=== PATIENT | male | born 1960 | race Caucasian/White ===

== ENCOUNTER 2024-09-11 22:39 | Inpatient (IN) | payer SELFPAY ==
[~2024-09-11] VITALS: Ht 180.3 cm; Wt 95.3 kg
[2024-09-11] MEDS: 0.9%NACL 1000ML 1,000 ML IV ONE (23:15)
[2024-09-11] MEDS: hydroMORPHone 0.5 MG SYG (0.5MG/0.5ML) IVP ONE (23:16)
[2024-09-11 23:18] LABS: BASOPHILS # (AUTO) 0.01 K/uL (0.00-0.20); BASOPHILS % (AUTO) 0.1 % (0.0-5.0); EOSINOPHILS # (AUTO) 0.02 K/uL (0.00-0.70); EOSINOPHILS % (AUTO) 0.3 % (0.0-8.0); IMMATURE GRANULOCYTE ABSOLUTE 0.06 K/uL (0-1); LYMPHOCYTES # (AUTO) 0.8 K/uL (1.0-4.8); LYMPHOCYTES % (AUTO) 11.1 % (21.0-51.0); MEAN CORPUSCULAR HEMOGLOBIN 37.4 pg (27.0-33.0); MEAN CORPUSCULAR HGB CONC 34.4 g/dL (32.0-36.0); MEAN CORPUSCULAR VOLUME 108.8 fL (79-99); MONOCYTES # (AUTO) 0.5 K/uL (0.1-1.0); MONOCYTES % (AUTO) 6.5 % (3.0-13.0); NEUTROPHILS # (AUTO) 5.6 K/uL (1.8-7.7); NEUTROPHILS % (AUTO) 81.1 % (40.0-77.0); PLATELET COUNT (AUTO) 198 K/uL (130-400); RED BLOOD CELL COUNT(AUTO) 1.71 MIL/uL (4.50-6.20); RED CELL DISTRIBUTION WIDTH 14.9 % (11.0-15.5); WHITE BLOOD COUNT (AUTO) 6.9 K/uL (4.8-10.8)
[2024-09-11 23:20] LABS: HEMATOCRIT 18.6 % (42-54)
[2024-09-11 23:21] LABS: CREATININE 0.6 mg/dL (0.5-1.3); POTASSIUM 4.7 mmol/L (3.5-5.1)
[2024-09-11] MEDS: IpraTROPium/alBUTERol SULFATE 3 ML SOLUTION IH ONE (23:30)
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
[2024-09-12] VITALS (40 sets, daily range): BP systolic 78–143; BP diastolic 39–74; PULSE 76–96; RESP 10–37; TEMP 97–98.9; O2SAT 92–98
--- NOTE | 2024-09-12 00:32 | HMCIMG ---
CT CHEST/ABD/PELV W/O CONTRAST HISTORY: Status post fall COMPARISON: None TECHNIQUE: Multiple sequential axial images of the chest were obtained from the thoracic inlet through upper abdomen. Patient was not given contrast through intravenous route. FINDINGS: COPD changes are seen with interstitial fibrosis. Coronary arterial calcifications are seen. There is no evidence of pulmonary nodule or parenchymal disease. No pleural effusion or pericardial effusion is seen. There is no evidence of pneumothorax. There are normal size mediastinal and hilar lymph nodes. The heart is not enlarged. Degenerative changes of the thoracolumbar spine are present. Compression fractures are seen involving T3, T4, T7 with 20% loss of height. Compression fractures are seen involving L1 and L2 with 40% and 80% loss of height respectively. IMPRESSION: 1. No evidence of pulmonary nodule or effusion is seen. COPD with interstitial fibrosis. A small hiatal hernia is seen. CT CHEST/ABD/PELV W/O CONTRAST HISTORY: Status post fall COMPARISON: None TECHNIQUE: Multiple sequential axial images of the abdomen and pelvis were obtained from the dome of the diaphragm through symphysis pubis. Patient was not given contrast through intravenous route. Oral contrast was not given. FINDINGS: The liver, spleen, adrenal glands and pancreas are unremarkable. There is no evidence of hydronephrosis bilaterally. There is 7.3 mm right renal pelvic stone. There is atherosclerosis. Mild small bowel dilatation is seen. Fecal material is seen in the colon. There are normal size retroperitoneal and mesenteric lymph nodes. No ascites is seen. Atherosclerotic changes are present. Pelvic sidewalls are symmetric bilaterally. Bladder is well distended without wall thickening. IMPRESSION: 1. Multiple compression fractures. 7.3 mm right renal pelvic stones without hydronephrosis. No ascites. CT was performed with one or more following dose reduction techniques: automated exposure control, adjustment of the mA and kv according to patient's size, or use of a iterative reconstruction technique.
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
[2024-09-12] MEDS: PANTOPrazole 40 MG/VIAL IVP ONE (01:36)
[2024-09-12 02:16] LABS: APPEARANCE,URINE CLEAR (CLEAR); BILIRUBIN,URINE NEGATIVE (NEGATIVE); COLOR,URINE LIGHT-YELLOW (YELLOW); GLUCOSE, URINE (UA) NEGATIVE (NEGATIVE); KETONES,URINE 5 mg/dL (NEGATIVE); LEUKOCYTE ESTERASE ,URINE NEGATIVE Leu/uL (NEGATIVE); NITRATE,URINE NEGATIVE (NEGATIVE); OCCULT BLOOD,URINE NEGATIVE (NEGATIVE); PH,URINE 5.5 (5.0-8.0); PROTEIN,URINE NEGATIVE (NEGATIVE); UROBILINOGEN,URINE 0.2 mg/dL (0.2-1.0)
[2024-09-12 02:20] LABS: ADD UA MICROSCOPIC YES
[2024-09-12 02:26] LABS: MUCUS,URINE RARE LPF (None Seen); WBC,URINE 0-1 /HPF (0-1)
[2024-09-12] MEDS: 0.9%NACL 1000ML 1,000 ML IV SCH (02:42)
--- NOTE | 2024-09-12 04:04 | NUR ---
NONOG ESCROW OFFICER MADE AWARE OF CRITICAL CARE CONSULT
--- NOTE | 2024-09-12 04:10 | NUR ---
1 UNIT OF PRBC'S COMPLETED AT THIS TIME, PATIENT IS IN NO DISTRESS
[2024-09-12] MEDS: PANTOPrazole 40MG INJ 80 MG in 0.9%NACL 100ML 100 ML IVP SCH (04:36)
[2024-09-12] MEDS: OCTREOTIDE 1,250 MCG /NS 250ML (DRIP) IV SCH (04:37)
[2024-09-12] MEDS: octREOtide aceTATe 100 MCG/ML AMP IV ONE (05:08)
[2024-09-12 06:16] LABS: BASOPHILS # (AUTO) 0.02 K/uL (0.00-0.20); BASOPHILS % (AUTO) 0.2 % (0.0-5.0); EOSINOPHILS # (AUTO) 0.03 K/uL (0.00-0.70); EOSINOPHILS % (AUTO) 0.4 % (0.0-8.0); HEMATOCRIT 22.5 % (42-54); IMMATURE GRANULOCYTE ABSOLUTE 0.03 K/uL (0-1); LYMPHOCYTES # (AUTO) 1.3 K/uL (1.0-4.8); LYMPHOCYTES % (AUTO) 16.6 % (21.0-51.0); MEAN CORPUSCULAR HEMOGLOBIN 35.8 pg (27.0-33.0); MEAN CORPUSCULAR HGB CONC 33.8 g/dL (32.0-36.0); MEAN CORPUSCULAR VOLUME 106.1 fL (79-99); MONOCYTES # (AUTO) 0.8 K/uL (0.1-1.0); MONOCYTES % (AUTO) 9.6 % (3.0-13.0); NEUTROPHILS # (AUTO) 5.8 K/uL (1.8-7.7); NEUTROPHILS % (AUTO) 72.8 % (40.0-77.0); PLATELET COUNT (AUTO) 150 K/uL (130-400); RED BLOOD CELL COUNT(AUTO) 2.12 MIL/uL (4.50-6.20); RED CELL DISTRIBUTION WIDTH 16.3 % (11.0-15.5)
[2024-09-12 06:17] LABS: CREATININE 0.4 mg/dL (0.5-1.3); MAGNESIUM 1.5 mg/dL (1.80-2.40); PHOSPHORUS 3.7 mg/dL (2.5-4.9); POTASSIUM 4.9 mmol/L (3.5-5.1)
--- NOTE | 2024-09-12 06:26 | EKG ---
[facility] Test Date: 2024-09-12 Test Time: 00:34:09 Pat Name: NOLBERTO MAGANA Department: [facility] Room: 207 Gender: M Medical Parasitologist: [id number] : 1960 Requested By: BHAVYA BOYD Order Number: [id number] Reading MD: Colton Olson Measurements Intervals Bennet Rate: 91 P: 66 WI: 143 QRS: -62 QRSD: 113 T: 163 QT: 426 QTc: 524 Interpretive Statements Sinus rhythm LAD, consider left anterior fascicular block Anterior infarct, age indeterminate Abnormal T, probable ischemia, lateral leads Prolonged QT interval No previous ECG available for comparison Electronically Signed On 09-12-2024 14:48:44 CONCESSION WORKER by Colton Olson Please click the below link to view image of tracing.
[2024-09-12 07:43] LABS: INR 1.07 (0.85-1.15); PROTHROMBIN TIME 11.3 SEC (9.6-11.6)
[2024-09-12 07:44] LABS: PARTIAL THROMBOPLASTIN TIME 26.5 SEC (26.3-35.5)
[2024-09-12] MEDS: MAGNESIUM 2GM PREMIX 50ML 50 ML IV PRN (07:51)
[2024-09-12] MEDS ORDERED: chlordiazePOXIDE HCL 25 MG CAP PO PRN (09:00)
[2024-09-12] MEDS ORDERED: PHARMACY COMMUNICATION MISC PRN (09:00)
[2024-09-12] MEDS ORDERED: LORazepam 2 MG/ML 1 ML VIAL IVP PRN (09:00)
[2024-09-12] MEDS ORDERED: hydroMORPHone 0.5 MG SYG (0.5MG/0.5ML) IVP PRN (09:00)
[2024-09-12] MEDS ORDERED: HYDROcodone/acetaMINOPHEN 10/325 MG TAB PO PRN (09:00)
[2024-09-12] MEDS ORDERED: HYDROcodone/APAP 5/325 1 TAB TABLET PO PRN (09:00)
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
[2024-09-12 09:10] LABS: ALBUMIN 1.9 g/dL (3.5-5.0); BILIRUBIN,DIRECT 0.2 mg/dL (0.0-0.3); BILIRUBIN,TOTAL 0.4 mg/dL (0.2-1.0); TOTAL PROTEIN, SERUM 4.2 g/dL (6.0-8.3)
--- NOTE | 2024-09-12 09:24 | HMCIMG ---
PORTABLE CHEST RADIOGRAPH INDICATION: sob COMPARISON: None FINDINGS: peripatologist leads overlie the field of view. Heart size is normal. The pulmonary vascularity and paty appear normal. No abnormal pulmonary parenchymal opacity or consolidation identified. No significant pleural effusion noted. No pneumothorax detected. IMPRESSION: No radiographic evidence for any acute cardiopulmonary process.
[2024-09-12] MEDS ORDERED: COMPOUND IV REFRIGERATED 1 EACH IVSOLN MISC PRN (09:30)
[2024-09-12 10:06] LABS: HEMATOCRIT 21.2 % (42-54)
[2024-09-12] MEDS: [UNRECOGNIZED DRUG - OTHER] IVPB ONE (10:44)
[2024-09-12] MEDS: CEFTRIAXONE 2GM VIAL IVPB SCH (10:44)
[2024-09-12] MEDS: AZITHROMYCIN 500 MG IVPB ONE (10:44)
[2024-09-12] MEDS: morPHINE 2 MG SYG IVP PRN (11:09)
--- NOTE | 2024-09-12 14:25 | NUR ---
Pt going for scheduled EGD with Dr. Gonzalez, accompanied by GI RN X2. Patient stable at time of transfer, all safety measures in place.
[2024-09-12] MEDS ORDERED: no home meds (14:44)
[2024-09-12] MEDS ORDERED: GADOTERATE MEGLUMINE 10 MMOL/20 ML VIAL IV ONE (16:27)
[2024-09-12] MEDS: LACTULOSE 20 GM/30 ML UDCUP PO SCH (17:11)
[2024-09-12] MEDS: THIAMINE HCL 100 MG, FOLic ACID 5 MG/ML VIAL 1 MG, M.V.I. IV [ADULT] 10 ML in 0.9%NACL ... IV SCH (17:12)
--- NOTE | 2024-09-12 18:12 | CONS ---
Cardiac Consult Note CONSULT NOTE DATE OF SERVICE: Sep 11, 2024 at 22:39 REFERRING PROVIDER: KAREN MARIE MD REASON FOR CONSULT: Preoperative assessment/preprocedural cardiovascular assessment prior to GI workup HPI: 64-year-old gentleman who has been taking high-dose NSAIDs after suffering a fall at home. Patient has been diagnosed with compression fractures and he was going to be scheduled for GI workup today when his hemoglobin was noted to be at 6.4 grams/deciliter. However patient had significant EKG changes concerning for ischemia and Cardiology was consulted for preprocedural assessment. He currently denies any prior history of myocardial infarction stroke TIA diabetes or dyslipidemia but admits to not going to the doctor very often. He does see Dr. Vanessa as needed for his aches and pains but really does not take any medications regularly. Patient's EKG is indeed significant for possible ischemic changes and when I came to evaluate patient he was actually undergoing an echocardiogram that had been ordered by primary team. While I was there patient was noted to have significant issues related to poor imaging but s ubcostal views did reveal him to have a gradient across his aortic valve and upon imaging he does have some degree of aortic stenosis. Peak gradient across aortic valve and left ventricular outflow tract was at more than 80 mmHg in the setting of a significant anemia. Patient currently is receiving a 2nd unit of blood. Patient denies any prior syncope. He states for the last year does note easier fatigability. Denies any chest pressure tightness syncope or presyncope or any admissions in the hospital for congestive heart failure. Patient does smoke 5 cigarettes daily and drinks 2 12 oz beers every other day ROS: No fever, headache, chest pain, abdominal pain, nausea, vomiting, or diarrhea. PMHX: Nicotine dependence Possible COPD PSHX: Noncontributory FH: Positive for CAD SOCIAL: As above PHYSICAL EXAMINATION: GENERAL: No acute distress. HEENT: Normocephalic, atraumatic. CARDIAC: Positive S1 and S2. Very distant heart sounds LUNGS: Rhonchi noted anteriorly ABDOMEN: Bowel sounds present, soft, nontender. EXTREMITIES: No edema bilaterally. Poorly palpable pedal pulses NEUROLOGIC: Cranial nerves 2-12 grossly intact. PSYCHIATRIC: Calm. ASSESSMENT: Cardiovascular assessment prior to noncardiac procedure Aortic stenosis via echocardiography GI bleed presenting with severe anemia present on admission Compression fractures after fall at home PLAN: At this time we will await results of 2D echocardiography but I feel patient should be considered intermediate risk to proceed with low risk procedure. Patient should remain on telemetry and would prefer that any invasive procedures get done once hemoglobin is above 9 grams/deciliter. Would try and avoid significant hypotension considering patient's valvular abnormality. Would keep patient in ICU setting today until transfusions have been completed. Ejection fraction appears to be normal on his echocardiogram so do not think any IV diuresis is needed in between units of blood. We will continue to follow through the weekend. Vital Signs 09/11/24 09/11/24 09/11/24 09/11/24 22:42 22:43 23:00 23:53 Temp 97.3 97.3 97.2 Pulse 103 103 101 91 Resp 20 20 24 20 B/P (MAP) 94/60 94/60 85/54 91/48 Pulse Ox 96 96 96 99 O2 Delivery Room Air* Room Air Room Air* Nasal Cannula* O2 Flow Rate 0 0 0 2 FiO2 09/12/24 09/12/24 09/12/24 09/12/24 00:15 01:15 02:07 02:47 Temp 97.5 98.6 Pulse 90 86 86 85 Resp 16 16 14 20 B/P (MAP) 97/66 87/48 109/55 96/50 Pulse Ox 100 100 100 99 O2 Delivery Nasal Cannula* Nasal Cannula* Nasal Cannula* Nasal Cannula* O2 Flow Rate 2 2 2 2 FiO2 28 28 09/12/24 09/12/24 09/12/24 09/12/24 03:50 05:26 06:15 07:43 Temp 98.8 97.5 Pulse 86 83 84 80 Resp 16 16 16 18 B/P (MAP) 92/52 101/55 99/56 99/62 Pulse Ox 98 99 98 100 O2 Delivery Nasal Cannula* Nasal Cannula* Nasal Cannula* Room Air* O2 Flow Rate 2 2 2 0 FiO2 09/12/24 09/12/24 09/12/24 09/12/24 09:00 09:15 09:30 09:45 Temp 97.9 Pulse 86 78 86 87 Resp 20 12 21 20 B/P (MAP) 97/63 107/46 82/39 120/61 Pulse Ox 95 88 96 95 O2 Delivery Room Air Room Air Room Air Room Air 3/7/25 09/12/24 09/12/24 09/12/24 10:00 10:15 10:30 10:45 Pulse 87 81 77 84 Resp 24 12 11 26 B/P (MAP) 103/74 86/52 82/47 120/51 Pulse Ox 96 94 98 98 O2 Delivery Room Air Room Air Room Air Room Air 09/12/24 09/12/24 09/12/24 09/12/24 11:00 11:15 11:30 12:30 Temp 97.0 Pulse 82 76 84 82 Resp 16 10 21 14 B/P (MAP) 101/48 130/58 143/54 92/60 Pulse Ox 99 98 99 O2 Delivery Room Air Room Air Room Air 09/12/24 09/12/24 09/12/24 12:45 13:00 13:15 Pulse 83 78 80 Resp 17 12 13 B/P (MAP) 88/53 78/45 83/52 Pulse Ox 89 87 91 O2 Delivery Room Air Room Air Room Air Laboratory Tests Test 09/11/24 23:01 09/12/24 01:12 09/12/24 01:50 09/12/24 02:05 White Blood Count 6.9 K/uL (4.8-10.8) Red Blood Count 1.71 MIL/uL (4.50-6.20) Hemoglobin 6.4 g/dL (14.0-18.0) Hematocrit 18.6 % (42-54) Mean Corpuscular Volume 108.8 fL (79-99) Mean Corpuscular Hemoglobin 37.4 pg (27.0-33.0) Mean Corpuscular Hemoglobin Concent 34.4 g/dL (32.0-36.0) Red Cell Distribution Width 14.9 % (11.0-15.5) Platelet Count 198 K/uL (130-400) Mean Platelet Volume 10.0 fL (7.5-10.5) Immature Granulocyte % (Auto) 0.9 % (0-1) Neutrophils (%) (Auto) 81.1 % (40.0-77.0) Lymphocytes (%) (Auto) 11.1 % (21.0-51.0) Monocytes (%) (Auto) 6.5 % (3.0-13.0) Eosinophils (%) (Auto) 0.3 % (0.0-8.0) Basophils (%) (Auto) 0.1 % (0.0-5.0) Neutrophils # (Auto) 5.6 K/uL (1.8-7.7) Lymphocytes # (Auto) 0.8 K/uL (1.0-4.8) Monocytes # (Auto) 0.5 K/uL (0.1-1.0) Eosinophils # (Auto) 0.02 K/uL (0.00-0.70) Basophils # (Auto) 0.01 K/uL (0.00-0.20) Absolute Immature Granulocyte (auto 0.06 K/uL (0-1) Nucleated Red Blood Cells 0.0 % (0.0-0.19) Red Blood Cell Morphology See comments Sodium Level 128 mmol/L (136-145) Potassium Level 4.7 mmol/L (3.5-5.1) Chloride Level 94 mmol/L (101-111) Carbon Dioxide Level 29 mmol/L (21-32) Blood Urea Nitrogen 31 mg/dL (7-18) Creatinine 0.6 mg/dL (0.5-1.3) Glomerular Filtration Rate Calc 108 mL/min (>90) Random Glucose 181 mg/dL (70-105) Total Calcium 7.8 mg/dL (8.5-10.1) Reticulocyte Count (auto) 4.28916 % (0.42-2.23) Immature Reticulocyte Fraction 19.80 % (0.18-0.48) Iron Level 77 mcg/dL (65-175) Total Iron Binding Capacity 124 mcg/dL (250-450) Percent Iron Saturation 62.0 % (30-44) Lactate Dehydrogenase 125 U/L (81-234) Vitamin B12 Level 248 pg/mL (193-986) Folic Acid (LAB) 7.80 ng/mL (2-20) Stool Occult Blood POSITIVE (NEGATIVE) Urine Color LIGHT-YELLOW (YELLOW) Urine Appearance CLEAR (CLEAR) Urine pH 5.5 (5.0-8.0) Urine Specific [place] 1.021 (1.001-1.031) Urine Protein NEGATIVE mg/dL (NEGATIVE) Urine Glucose (UA) NEGATIVE mg/dL (NEGATIVE) Urine Ketones 5 mg/dL (NEGATIVE) Urine Occult Blood NEGATIVE (NEGATIVE) Urine Nitrate NEGATIVE (NEGATIVE) Urine Bilirubin NEGATIVE mg/dL (NEGATIVE) Urine Urobilinogen 0.2 mg/dL (0.2-1.0) Urine Leukocyte Esterase NEGATIVE Yesi/uL Urine RBC 2-5 /HPF (0-1) Urine WBC 0-1 /HPF (0-1) Urine Bacteria None /HPF (None Seen) Urine Random Sodium 19 mmol/l (40-220) Test 09/12/24 05:45 09/12/24 06:10 09/12/24 07:17 09/12/24 09:54 Sodium Level 128 mmol/L (136-145) Potassium Level 4.9 mmol/L (3.5-5.1) Chloride Level 100 mmol/L (101-111) Carbon Dioxide Level 25 mmol/L (21-32) Blood Urea Nitrogen 29 mg/dL (7-18) Creatinine 0.4 mg/dL (0.5-1.3) Glomerular Filtration Rate Calc 122 mL/min (>90) Random Glucose 111 mg/dL (70-105) Total Calcium 7.6 mg/dL (8.5-10.1) Phosphorus Level 3.7 mg/dL (2.5-4.9) Magnesium Level 1.50 mg/dL (1.80-2.40) White Blood Count 8.0 K/uL (4.8-10.8) Red Blood Count 2.12 MIL/uL (4.50-6.20) Hemoglobin 7.6 g/dL (14.0-18.0) 7.5 g/dL (14.0-18.0) Hematocrit 22.5 % (42-54) 21.2 % (42-54) Mean Corpuscular Volume 106.1 fL (79-99) Mean Corpuscular Hemoglobin 35.8 pg (27.0-33.0) Mean Corpuscular Hemoglobin Concent 33.8 g/dL (32.0-36.0) Red Cell Distribution Width 16.3 % (11.0-15.5) Platelet Count 150 K/uL (130-400) Mean Platelet Volume 9.6 fL (7.5-10.5) Immature Granulocyte % (Auto) 0.4 % (0-1) Neutrophils (%) (Auto) 72.8 % (40.0-77.0) Lymphocytes (%) (Auto) 16.6 % (21.0-51.0) Monocytes (%) (Auto) 9.6 % (3.0-13.0) Eosinophils (%) (Auto) 0.4 % (0.0-8.0) Basophils (%) (Auto) 0.2 % (0.0-5.0) Neutrophils # (Auto) 5.8 K/uL (1.8-7.7) Lymphocytes # (Auto) 1.3 K/uL (1.0-4.8) Monocytes # (Auto) 0.8 K/uL (0.1-1.0) Eosinophils # (Auto) 0.03 K/uL (0.00-0.70) Basophils # (Auto) 0.02 K/uL (0.00-0.20) Absolute Immature Granulocyte (auto 0.03 K/uL (0-1) Nucleated Red Blood Cells 0.0 % (0.0-0.19) Prothrombin Time 11.3 SEC (9.6-11.6) Prothromb Time International Ratio 1.07 (0.85-1.15) Activated Partial Thromboplast Time 26.5 SEC (26.3-35.5) Total Bilirubin 0.4 mg/dL (0.2-1.0) Direct Bilirubin 0.2 mg/dL (0.0-0.3) Aspartate Amino Transf (AST/SGOT) 43 U/L (10-37) Alanine Aminotransferase (ALT/SGPT) 20 U/L (12-78) Alkaline Phosphatase 60 U/L (50-136) Total Protein 4.2 g/dL (6.0-8.3) Albumin 1.9 g/dL (3.5-5.0) Serum Alcohol 4 mg/dL (0-10) Test 09/12/24 16:45 Hemoglobin 6.8 g/dL (14.0-18.0) Hematocrit 20.0 % (42-54) Current Medications Medications Dose Ordered Sig/Samina Route PRN Reason Start Time Stop Time Status Last Admin Hydromorphone HCl 0.5 mg ONCE ONCE IVP 09/11/24 23:00 09/11/24 23:05 DC 09/11/24 23:16 Sodium Chloride 1,000 ml @ 0 mls/hr ONCE ONCE IV 09/11/24 23:00 09/11/24 23:05 DC 09/11/24 23:15 Albuterol 1 UDVIAL ONCE ONCE IH 09/11/24 23:30 09/11/24 23:31 DC Pantoprazole Sodium 80 mg ONCE ONCE IVP 09/11/24 23:30 09/11/24 23:31 DC 09/12/24 01:36 Sodium Chloride 1,000 ml @ 75 mls/hr [id number] IV 09/12/24 01:30 10/12/24 01:29 09/12/24 02:42 Octreotide Acetate 50 mcg ONCE ONCE IV 09/12/24 04:00 09/12/24 04:01 DC 09/12/24 05:08 Octreotide Acetate 1,000 mcg ONCE IV 09/12/24 04:00 09/12/24 03:58 DC Pantoprazole Sodium 80 mg/ Sodium Chloride 100 ml @ 10 mls/hr Q10H IVP 09/12/24 04:00 10/12/24 03:59 09/12/24 17:11 Octreotide Acetate 1250 mcg/ Sodium Chloride 250 ml @ 0 mls/hr PROTOCOL IV 09/12/24 04:00 10/12/24 03:59 09/12/24 04:37 Ceftriaxone Sodium 2 gm Q24H IVPB 09/12/24 09:00 09/22/24 08:59 09/12/24 10:44 Thiamine HCl 100 mg/Folic Acid 1 mg/Multivitamins/ Minerals 10 ml/ Sodium Chloride 1,011.2 ml @ 100 mls/ hr Q24H IV 09/12/24 09:00 09/14/24 19:07 09/12/24 17:12 Azithromycin 125 ml @ 125 mls/hr ONCE ONCE IVPB 09/12/24 10:30 09/12/24 11:29 DC 09/12/24 10:44 Lactulose 20 gm Q2H PO 09/12/24 15:00 09/12/24 18:00 DC 09/12/24 17:11 Polyethylene Glycol 17 gm DAILY PO 09/13/24 09:00 10/13/24 08:59 Gadoterate Meglumine 10 mmol STK-MED ONCE IV 09/12/24 16:27 09/12/24 16:28 DC Reported Medications [no home meds] No Conflict Check 09/12/24 KAREN MARIE MD Sep 12, 2024 18:12
--- NOTE | 2024-09-12 18:14 | HMCSR ---
APPROVED REPORT EXAM: Two-dimensional and M-mode echocardiogram with Doppler and color Doppler. INDICATION ICD: Assess LV Function 2D Dimensions RVDd2.9 cmLVEF(%)62.1 (>50%)LVED Vol(simp.)80.5 mL IVSd1.4 (0.7-1.1cm)FS(%)34 %LVES Vol(simp.)37.7 mL LVDd5.1 (3.8-5.6cm)Ao Root(2D)3.7 (2.0-3.7cm)LVEF(%, simp.)53 % PWd1.1 (0.7-1.1cm)LVOT diam2.2 (1.8-2.4cm)LA ESV INDEX (BP)26.26 mL/m2 LVDs3.4 (2.5-4.0cm)IVC diam1.7 cm Aortic Valve AoV Vmax4.7 m/Kimberli Peak GR88.0 mmHgLVOT Vmax1.1 m/s AoV VTI0.9 mAo Mean GR56.0 mmHgLVOT VTI0.24 m TALHA (VMAX)1.0 cm2AVA (VTI) 1.0 cm2 Mitral Valve MV E Vmax80.8 cm/sDECEL Nelu567 ms MV A Peqe909.0 cm/sP 1/2 T43 ms E/A ratio0.6MVA (PHT)5.1 cm2 TDI E/E' Vbouhj78.2E/E' Lhcmors99.5 Medial E' Peak V5.00 cm/sLateral E' Peak V6.00 cm/s Tricuspid Valve TR Vmax2.4 m/sRVSP22.3 mmHg TR Peak GR22.3 mmHg Left Ventricle Left ventricular cavity size is normal. There is normal LV segmental wall motion. Mild concentric lef t ventricular hypertrophy. LVEF is 50-55%. Indeterminate diastolic dysfunction. Right Ventricle The right ventricle is normal size. The right ventricular systolic function is normal. Atria The left atrium size is normal. The right atrium size is normal. Aortic Valve The aortic valve is calcified and displays decreased opening. No aortic regurgitation is present. The re is severe valvular aortic stenosis. Highest mean aortic valve gradient is 56mmHg at rest. Peak aor tic valve gradient is 86mmHg. TALHA planimetry 0.6cm2. Mitral Valve The mitral valve is normal in structure and function. There is no mitral valve regurgitation noted. T here is no mitral valve stenosis. Tricuspid Valve The tricuspid valve leaflets appear normal. There is mild tricuspid valve regurgitation noted. Pulmonic Valve The pulmonary valve is normal in structure and function. There is no pulmonic valvular regurgitation. Great Vessels The aortic root is normal in size. The IVC is normal in size and collapses >50% with inspiration. Pericardium Trace pericardial effusion. Conclusion LVEF is 50-55%. There is normal LV segmental wall motion. The aortic valve is calcified and displays decreased opening. There is severe valvular aortic stenosis. Highest mean aortic valve gradient is 56mmHg at rest. Peak aortic valve gradient is 86mmHg. TALHA planimetry 0.6cm2.
[2024-09-13] VITALS (27 sets, daily range): BP systolic 95–127; BP diastolic 51–83; PULSE 69–86; RESP 11–89; TEMP 98–98.2; O2SAT 97–98
--- NOTE | 2024-09-13 00:36 | CONS ---
GASTROINTESTINAL CONSULTATION REFERRING PHYSICIAN: Rene Rivero MD REASON FOR CONSULTATION: GI bleed with melena, acute blood loss anemia, nausea and change in bowel habit with constipation plus weight loss. HISTORY OF PRESENT ILLNESS: The patient is a 64-year-old male with history of benign prostatic hyperplasia and admitted with back pain and who has been noted to have melena, weight loss, nausea, constipation, with anemia on labs, for which GI evaluation and management are sought. According to the patient, he has been having black tarry stool over the last 24 hours. He also has experienced some nausea and has been having constipation for 10 days. He has lost 10 pounds unintentional over the last 6 months. He denies any abdominal pain, vomiting, hematochezia, and diarrhea. He denies history of PUD, but admits history of NSAID use and reports because of his back pain. He has been taking NSAIDs over the last 3 weeks. He reports constipation has been noted over the last 10 days too. He has lost 10 pounds unintentional over the last 6 months and reports decreased appetite. He has had no fevers or chills. The patient denies any history of liver disease, admits history of alcohol use. He has no family history of colon cancer, stomach cancer, liver disease, gallbladder, pancreatic disease or IBD. ALLERGIES: No known drug allergies. PAST MEDICAL AND SURGICAL HISTORY: See above, also history of benign prostatic hyperplasia and back pain, but no hypertension, coronary artery disease, myocardial infarction, cerebrovascular accident, seizure disorder, peptic ulcer, or asthma. He has undergone splenectomy at age 14 years. He also had a left ACL repair. MEDICATIONS: Morphine sulfate, thiamine, folic acid, multivitamins and minerals, lorazepam, chlordiazepoxide, ceftriaxone, hydromorphone, hydrocodone bitartrate with acetaminophen, magnesium sulfate, IV octreotide, IV Protonix, albuterol. SOCIAL HISTORY: The patient reports history of alcohol use and smoking tobacco, but no illicit drug use. FAMILY HISTORY: Significant for supranuclear palsy in his father who is now . Mother of COVID. There is no family history of diabetes, hypertension, coronary artery disease, myocardial infarction, cerebrovascular accident, colon cancer, stomach cancer, liver disease, pancreatic, gallbladder disease or IBD. There is no family history of bleeding disorders either. REVIEW OF SYSTEMS: CONSTITUTIONAL: The patient reports nausea, has improved since hospitalization. Still has constipation and weight loss as noted above. Melena has subsided. DERMATOLOGY: Has easy bruising. Denies any rash or excessive dry skin. ENT: No ear pain, tinnitus, hearing loss, nasal congestion, rhinorrhea, sore throat, or voice change. OPHTHALMOLOGY: No recent vision change, eye pain, periorbital swelling, redness or drainage. RESPIRATORY: No wheeze, rhinorrhea, epistaxis, chest congestion, cough, or shortness of air. CARDIOVASCULAR: No chest pain, palpitation, or leg swelling. GENITOURINARY: He has benign prostatic hyperplasia with urinary hesitancy at times. Denies dysuria, hematuria, urinary urgency, or frequency. GASTROINTESTINAL: The patient has had nausea and also he has been having constipation, melena, weight loss as noted above but no vomiting. He denies diarrhea also. The patient denies hematochezia as well. MUSCULOSKELETAL: He admits to back pain, but no joint swelling, no muscle ache. NEUROLOGIC: He has back pain as noted above. Denies vision changes, hearing loss, numbness or tingling in lower extremity. PSYCHIATRY: No history of depression, anxiety, suicidal plans or ideation. ENDOCRINOLOGY: No history of diabetes, thyroid disease, or hyperlipidemia. HEMATOLOGY/LYMPHATICS: He has easy bruising. Has recent melena, but denies any inherited bleeding disorders, swollen, tender or palpable lymph nodes. PHYSICAL EXAMINATION: GENERAL: The patient is a 64-year-old male, seen resting in bed, no acute respiratory distress. VITAL SIGNS: Blood pressure 83/52, heart rate 80, respirations 13, temperature 97 degrees Fahrenheit. Followup BP now 103/69, heart rate 88, respirations 16. HEENT: The patient's head is normocephalic, atraumatic. Pupils reactive, sclerae are nonicteric. Oral mucosa was moist. No obvious lesion or blood noted. Nasal mucosa showed no epistaxis, septal deviation, or perforation. NECK: No mass or jugular venous distention. No lymphadenopathy, no thyromegaly. LUNGS: Clear to auscultation bilaterally. HEART: S1, S2. No obvious murmurs, rubs, or gallops ausculated. ABDOMEN: Symmetric, soft with active bowel sounds. No hepatomegaly or masses. No tenderness noted. EXTREMITIES: No cyanosis, clubbing, or edema. RECTAL: Deferred. NEUROLOGICAL: The patient is awake, alert. Light touch, pin and temperature grossly intact bilaterally. LABORATORY DATA: WBC 8, hemoglobin 7.6, hematocrit 22.5, MCV of 106.1, platelet count of 150. Retic count 4.16 and immature retic fraction 19.8. PT 11.3, INR 1.07, APTT of 26.5. Serum chemistry revealed sodium of 128, potassium 4.9, chloride of 100, CO2 of 25, BUN of 29, creatinine of 0.4, GFR of 122, random glucose 111, total calcium of 7.6. Phosphorus of 3.7, magnesium of 1.5. Iron of 77, TIBC 124, percent saturation of 62. Total bilirubin of 0.4, direct bilirubin of 0.2, AST 43, ALT 20, alkaline phosphatase of 60. Lactate dehydrogenase of 125, total protein of 4.2, albumin of 1.9. Vitamin B12 level at 248. Folic acid of 10.8. Serum alcohol level was 4 on tox screen. UA showed light yellow; clear urine; pH of 5.5; specific gravity 1.021; protein and glucose were negative; ketones 5; occult blood, nitrite, bilirubin negative; urobilinogen 0.2, leukocyte esterase negative; rbc 2-5; wbc 0-1; urine bacteria none; random sodium was 19. DIAGNOSTIC DATA: CT scan chest, abdomen and pelvis done, showed multiple compression fractures 7.3 mm, atherosclerosis is noted. Small bowel dilatation is seen. Fecal material seen in the colon. Retroperitoneal mesenteric lymph nodes within normal limits. IMPRESSION: * Melena, likely from peptic ulcer bleed versus upper gastrointestinal angiodysplastic lesion or Dieulafoy's lesion. * Anemia, most likely from gastrointestinal bleed as noted above. * Nausea, possibly from peptic ulcer versus erosive gastritis or erosive duodenitis. * Weight loss, suggests likely a peptic ulcer, but malignancy cannot be excluded. So, gastric cancer or right colon malignancy cannot be excluded. * Back pain secondary to disk disease. * Benign prostatic hyperplasia. * Hyponatremia. PLAN: * Recommend EGD for further evaluation and management. * Continue IV Protonix, IV Sandostatin . * Recommend a colonoscopy also. * Daily weight. * Continue to monitor CBC and transfuse PRBC as needed to hemoglobin of at least 7. * Follow up with a.m. labs. Dr. Rivero, thank you for allowing me to participate in the care of this patient. TID: [id number] RECEIPT: [id number]
[2024-09-13 00:59] LABS: HEMATOCRIT 26.7 % (42-54)
[2024-09-13] MEDS: THIAMINE HCL 100 MG, FOLic ACID 5 MG/ML VIAL 1 MG, M.V.I. IV [ADULT] 10 ML in 0.9%NACL ... IV SCH (06:49)
[2024-09-13] MEDS: polyETHYLene GLYCol 3350 17 GM POWD.PACK PO SCH (08:10)
[2024-09-13 09:52] LABS: BASOPHILS # (AUTO) 0.02 K/uL (0.00-0.20); BASOPHILS % (AUTO) 0.3 % (0.0-5.0); EOSINOPHILS # (AUTO) 0.06 K/uL (0.00-0.70); EOSINOPHILS % (AUTO) 0.9 % (0.0-8.0); HEMATOCRIT 28.1 % (42-54); IMMATURE GRANULOCYTE ABSOLUTE 0.04 K/uL (0-1); LYMPHOCYTES # (AUTO) 1.2 K/uL (1.0-4.8); LYMPHOCYTES % (AUTO) 17.7 % (21.0-51.0); MEAN CORPUSCULAR HEMOGLOBIN 33.9 pg (27.0-33.0); MEAN CORPUSCULAR HGB CONC 33.8 g/dL (32.0-36.0); MEAN CORPUSCULAR VOLUME 100.4 fL (79-99); MONOCYTES # (AUTO) 0.7 K/uL (0.1-1.0); MONOCYTES % (AUTO) 9.9 % (3.0-13.0); NEUTROPHILS # (AUTO) 4.8 K/uL (1.8-7.7); NEUTROPHILS % (AUTO) 70.6 % (40.0-77.0); PLATELET COUNT (AUTO) 150 K/uL (130-400); WHITE BLOOD COUNT (AUTO) 6.8 K/uL (4.8-10.8)
[2024-09-13 10:07] LABS: CREATININE 0.5 mg/dL (0.5-1.3); POTASSIUM 4.7 mmol/L (3.5-5.1)
--- NOTE | 2024-09-13 11:34 | HMCIMG ---
MR SPINAL CANAL, THORACIC WWO HISTORY: No additional history given. COMPARISON: None TECHNIQUE: MRI of the thoracic spine was performed utilizing multiple pulse sequences in axial, coronal and sagittal plane. Patient was not given contrast through intravenous route. FINDINGS: No abnormal signal intensity is seen of the visualized bony structure. There is subacute compression fracture involving T8 with 50% loss of height. Degenerative disc signals are present at all thoracic spine levels. The thoracic cord is of normal signal intensity without cord compression or impingement. There are degenerative changes with thoracic spine spondylosis predominantly involving the T5-T6, T6-T7, T7-T8 and T8-T9 levels with mild central canal narrowing. IMPRESSION: 1. There is subacute compression fracture involving T8 with 50% loss of height. There are degenerative changes with spondylosis.
--- NOTE | 2024-09-13 11:44 | PN ---
PROGRESS NOTE PROBLEM LIST: Cardiovascular assessment prior to noncardiac procedure Aortic stenosis via echocardiography GI bleed presenting with severe anemia present on admission Compression fractures after fall at home INTERIM HISTORY OF PRESENT ILLNESS: Patient did receive his transfusions yesterday and hemoglobin has stabilized. He has been seen by Gastroenterology and plans are for probable EGD in the next 24-48 hours. 2D echocardiogram did confirm findings. Ejection fraction is noted to be normal. Patient currently denies any chest pain pressure tightness. REVIEW OF SYSTEMS: No fever, headache, chest pain, abdominal pain, nausea, vomiting, or diarrhea. VITAL SIGNS Vital Signs Date Time Temp Pulse Resp B/P (MAP) Pulse Ox O2 Delivery O2 Flow Rate FiO2 09/13/24 09:00 76 18 98/51 96 Nasal Cannula 2.0 09/13/24 08:00 28 09/13/24 08:00 98.2 Laboratory Tests 09/12/24 16:45 09/13/24 00:21 09/13/24 04:06 09/13/24 09:41 LABS/MEDS Laboratory Tests Test 09/12/24 16:45 09/13/24 00:21 09/13/24 04:06 09/13/24 09:41 Hemoglobin 6.8 g/dL (14.0-18.0) *L 9.0 g/dL (14.0-18.0) #L 8.8 g/dL (14.0-18.0) L 9.5 g/dL (14.0-18.0) L Hematocrit 20.0 % (42-54) *L 26.7 % (42-54) #L 26.0 % (42-54) L 28.1 % (42-54) L White Blood Count 6.8 K/uL (4.8-10.8) Red Blood Count 2.80 MIL/uL (4.50-6.20) L Mean Corpuscular Volume 100.4 fL (79-99) H Mean Corpuscular Hemoglobin 33.9 pg (27.0-33.0) H Mean Corpuscular Hemoglobin Concent 33.8 g/dL (32.0-36.0) Red Cell Distribution Width 19.0 % (11.0-15.5) H Platelet Count 150 K/uL (130-400) Mean Platelet Volume 9.5 fL (7.5-10.5) Immature Granulocyte % (Auto) 0.6 % (0-1) Neutrophils (%) (Auto) 70.6 % (40.0-77.0) Lymphocytes (%) (Auto) 17.7 % (21.0-51.0) L Monocytes (%) (Auto) 9.9 % (3.0-13.0) Eosinophils (%) (Auto) 0.9 % (0.0-8.0) Basophils (%) (Auto) 0.3 % (0.0-5.0) Neutrophils # (Auto) 4.8 K/uL (1.8-7.7) Lymphocytes # (Auto) 1.2 K/uL (1.0-4.8) Monocytes # (Auto) 0.7 K/uL (0.1-1.0) Eosinophils # (Auto) 0.06 K/uL (0.00-0.70) Basophils # (Auto) 0.02 K/uL (0.00-0.20) Absolute Immature Granulocyte (auto 0.04 K/uL (0-1) Nucleated Red Blood Cells 0.0 % (0.0-0.19) Sodium Level 134 mmol/L (136-145) L Potassium Level 4.7 mmol/L (3.5-5.1) Chloride Level 103 mmol/L (101-111) Carbon Dioxide Level 30 mmol/L (21-32) Blood Urea Nitrogen 18 mg/dL (7-18) Creatinine 0.5 mg/dL (0.5-1.3) Glomerular Filtration Rate Calc 114 mL/min (>90) Random Glucose 107 mg/dL (70-105) H Total Calcium 7.7 mg/dL (8.5-10.1) L Test 09/13/24 10:48 Whole Blood Glucose 102 MG/DL (70-110) Current Medications Hydromorphone HCl 0.5 mg ONCE ONCE IVP Last administered on 09/11/24at 23:16; Start 09/11/24 at 23:00; Stop 09/11/24 at 23:05; Status DC Sodium Chloride 1,000 ml @ 0 mls/hr ONCE ONCE IV Last administered on 09/11/24at 23:15; Start 09/11/24 at 23:00; Stop 09/11/24 at 23:05; Status DC Albuterol 1 UDVIAL ONCE ONCE IH; Start 09/11/24 at 23:30; Stop 09/11/24 at 23:31; Status DC Pantoprazole Sodium 80 mg ONCE ONCE IVP Last administered on 09/12/24at 01:36; Start 09/11/24 at 23:30; Stop 09/11/24 at 23:31; Status DC Acetaminophen 650 mg Q6H PRN PO; Start 09/12/24 at 01:30; Stop 10/12/24 at 01:29 Ondansetron HCl 4 mg Q6H PRN IV; Start 09/12/24 at 01:30; Stop 10/12/24 at 01:29 Sodium Chloride 1,000 ml @ 75 mls/hr [id number] IV Last administered on 09/12/24at 02:42; Start 09/12/24 at 01:30; Stop 10/12/24 at 01:29 Octreotide Acetate 50 mcg ONCE ONCE IV Last administered on 09/12/24at 05:08; Start 09/12/24 at 04:00; Stop 09/12/24 at 04:01; Status DC Octreotide Acetate 1,000 mcg ONCE IV; Start 09/12/24 at 04:00; Stop 09/12/24 at 03:58; Status DC Pantoprazole Sodium 80 mg/ Sodium Chloride 100 ml @ 10 mls/hr Q10H IVP Last administered on 09/13/24at 02:28; Start 09/12/24 at 04:00; Stop 10/12/24 at 03:59 Octreotide Acetate 1250 mcg/ Sodium Chloride 250 ml @ 0 mls/hr PROTOCOL IV Last administered on 09/12/24at 04:37; Start 09/12/24 at 04:00; Stop 10/12/24 at 03:59 Magnesium Sulfate 50 ml @ 0 mls/hr PROTOCOL PRN IV Last administered on 09/12/24at 07:51; Start 09/12/24 at 08:00; Stop 10/12/24 at 07:59 Acetaminophen/ Hydrocodone Bitart 1 tab Q6H PRN PO; Start 09/12/24 at 09:00; Stop 09/12/24 at 09:59; Status DC Acetaminophen/ Hydrocodone Bitart 1 tab Q6H PRN PO; Start 09/12/24 at 09:00; Stop 09/12/24 at 09:59; Status DC Hydromorphone HCl 0.5 mg Q4H PRN IVP; Start 09/12/24 at 09:00; Stop 09/17/24 at 08:59 Ceftriaxone Sodium 2 gm Q24H IVPB Last administered on 09/13/24at 08:10; Start 09/12/24 at 09:00; Stop 09/22/24 at 08:59 Chlordiazepoxide HCl 25 mg Q2H PRN PO; Start 09/12/24 at 09:00; Stop 09/19/24 at 08:59 Lorazepam 2 mg Q4H PRN IVP; Start 09/12/24 at 09:00; Stop 09/19/24 at 08:59 Thiamine HCl 100 mg/Folic Acid 1 mg/Multivitamins/ Minerals 10 ml/ Sodium Chloride 1,011.2 ml @ 100 mls/ hr Q24H IV Last administered on 09/12/24at 17:12; Start 09/12/24 at 09:00; Stop 09/13/24 at 06:16; Status DC Pharmacy Profile Note 1 each PROTOCOL PRN MISC; Start 09/12/24 at 09:00; Stop 09/19/24 at 08:59 Morphine Sulfate 2 mg Q4H PRN IVP Last administered on 09/13/24at 06:56; Start 09/12/24 at 09:30; Stop 09/19/24 at 09:29 Azithromycin 125 ml @ 125 mls/hr ONCE ONCE IVPB Last administered on 09/12/24at 10:44; Start 09/12/24 at 10:30; Stop 09/12/24 at 11:29; Status DC Lactulose 20 gm Q2H PO Last administered on 09/12/24at 17:11; Start 09/12/24 at 15:00; Stop 09/12/24 at 18:00; Status DC Polyethylene Glycol 17 gm DAILY PO Last administered on 09/13/24at 08:10; Start 09/13/24 at 09:00; Stop 10/13/24 at 08:59 Gadoterate Meglumine 10 mmol STK-MED ONCE IV; Start 09/12/24 at 16:27; Stop 09/12/24 at 16:28; Status DC Thiamine HCl 100 mg/Folic Acid 1 mg/Multivitamins/ Minerals 10 ml/ Sodium Chloride 1,011.2 ml @ 100 mls/ hr Q10H IV Last administered on 09/13/24at 06:49; Start 09/13/24 at 06:30; Stop 09/14/24 at 02:29 PHYSICAL EXAMINATION: GENERAL: No acute distress. HEENT: Normocephalic, atraumatic. CARDIAC: Positive S1 and S2. Distant heart sounds noted crescendo decrescendo murmur appreciated today LUNGS: Clear to auscultation bilaterally. ABDOMEN: Bowel sounds present, soft, nontender. EXTREMITIES: No edema bilaterally. NEUROLOGIC: Cranial nerves 2-12 grossly intact. PSYCHIATRIC: Calm. TELEMETRY: Sinus rhythm ASSESSMENT: Cardiovascular assessment prior to noncardiac procedure Aortic stenosis via echocardiography GI bleed presenting with severe anemia present on admission Compression fractures after fall at home PLAN: At this time patient has been deemed intermediate risk to proceed with low risk procedure to include an EGD and at that time we will determine if colonoscopy is necessary via gastroenterology. Heart post the patient's ejection fraction is noted to be normal but he does have a degree of aortic stenosis that we will likely need to be addressed once anemia evaluation has been completed. Optimally would repeat 2D echocardiography now that hemoglobin has improved to see what gradients are now as an anemia can spuriously elevate gradients of aortic stenosis. However with visual imaging of aortic valve and was indeed significant for reduced excursion of leaflets and in the near future I would imagine patient's aortic valve stenosis we will need to be addressed surgically. In regards to patient's compression fractures that will be addressed at a later time as well and hopefully will remained stable as other GI and cardiac issues are addressed. We will continue to follow. KAREN MARIE MD Sep 13, 2024 11:44
--- NOTE | 2024-09-13 13:16 | NUR ---
DCP- INITIAL ASSESSMENT Patient lives alone. He has no home services of DME. Patient is able to complete ADL's independently and drives. 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 PCP is Dr. Vishal Vanessa. Pharmacy is [facility]. Patient's daughter states that they were in the process of having patient move to [place] to be closer to her. Patient states he will wait to be discharged and make arrangements to move with daughter. Patient voiced no safety concerns regarding returning home and states he has no difficulty with housing or buying food. DCP is home. Patient has no insurance or benefits. He was provided with community resources for post hospitalization follow up. Patient was also provided with Good RX card for prescriptions and educated on [facility] $4 medication program and [facility] $5 medication program. Patient is being assisted by [employer] for financial matters. Addendum: 09/13/24 at 1322 by SHEYLA SAMUEL SS Amended: Links added.
--- NOTE | 2024-09-13 13:22 | NUR ---
CORRECT ADDRESS Patient's correct address is: [address] [place] [address] Demographic sheet sent for correction.
--- NOTE | 2024-09-13 13:24 | HMCIMG ---
MR SPINAL CANAL, CERV W/WO CON HISTORY: Multiple compression fractures COMPARISON: None TECHNIQUE: MRI of the cervical spine was performed utilizing multiple pulse sequences in axial, coronal and sagittal plane. Patient was given 90 cc of Clariscan through intravenous route. FINDINGS: There are motion artifacts degrading the image quality. No abnormal signal intensity is seen of the visualized bony structure. No loss of vertebral height is seen. There is straightening of normal lordotic cervical curvature which may be related to muscle spasm or positioning. Degenerative disc signals are present at all cervical spine levels. Cerebellar tonsils are in normal position. The cervical cord is of normal signal intensity without cord compression or impingement. At the C2-3 level, there is spondylotic disc causing anterior CSF space effacement with bilateral lateral recess stenosis and bilateral neural foraminal stenosis. The central canal measures approximately 7 mm in its anterior posterior dimension. At the C3-4 level, there is spondylotic disc causing anterior CSF space effacement with bilateral lateral recess stenosis and bilateral neural foraminal stenosis. The central canal measures approximately 7 mm in its anterior posterior dimension. At the C4-5 level, there is spondylotic disc causing anterior CSF space effacement with bilateral lateral recess stenosis and bilateral neural foraminal stenosis. The central canal measures approximately 6.5 mm in its anterior posterior dimension. At the C5-6 level, there is spondylotic disc causing anterior CSF space effacement with bilateral lateral recess stenosis and bilateral neural foraminal stenosis. The central canal measures approximately 10.7 mm in its anterior posterior dimension. At the C6-7 level, there is spondylotic disc causing anterior CSF space effacement with bilateral lateral recess stenosis and bilateral neural foraminal stenosis. The central canal measures approximately 6.4 mm in its anterior posterior dimension. IMPRESSION: 1. DJD with cervical spine spondylosis and central canal narrowings as described above.
--- NOTE | 2024-09-13 13:31 | PN ---
[facility] PROGRESS NOTE Date of Service: Sep 13, 2024 Time of Service: 13:22 SUBJECTIVE: 09/13 patient seen at bedside, no acute events overnight. GI recommending EGD and colonoscopy, we will follow up postprocedure. He was transfused with 2 units packed red blood cell, hemoglobin now at 9.5, remainder of his labs are relatively unremarkable. MRI of thoracic spine showing subacute compression fracture involving T8 with 50% loss of height, no evidence of metastatic disease. Echo showing normal EF of 50-55% with severe valvular aortic stenosis, peak aortic valve gradient of 86 mm Hg, per Cardiology patient may need surgical intervention to address aortic valve REVIEW OF SYSTEMS CONSTITUTIONAL: Denies fevers, chills, or night sweats. No unintentional weight loss reported. NEUROLOGICAL: Denies headache, amaurosis fugax, motor weakness, sensory deficit, vertigo/spinning sensation, gait abnormalities, or tremors. ENT: No hearing loss, otalgia, otorrhea, rhinitis, rhinorrhea, hoarseness, or sore throat. CARDIOVASCULAR: Denies any exertional angina, dyspnea on exertion, orthopnea, paroxysmal nocturnal dyspnea, palpitations, life-threatening arrhythmias, claudication. PULMONARY: Denies any shortness of breath, cough, phlegm/sputum, hemoptysis, pleuritic chest pain. SLEEP: Denies morning headaches, daytime somnolence or napping. Denies difficulty falling asleep, staying asleep, waking from sleep. Denies knowledge of snoring. GASTROINTESTINAL: Denies any type of dysphagia to either liquids or solids. Denies nausea, vomiting, pyrosis, early satiety, abdominal pain, diarrhea, c onstipation, or changes in stool consistency or caliber. Denies coffee-ground emesis, hematemesis, hematochezia, or melanotic stools. GENITOURINARY: Denies frequency, urgency, nocturia, hematuria or incontinence (Storage/Irritative symptoms.) Low urinary stream, straining to void, urinary intermittency or hesitancy, splitting of the voiding stream, terminal dribbling. ENDOCRINOLOGIC: Denies polyuria, polydipsia, polyphagia or heat/cold intolerances. HEMATOLOGIC: Denies thrombophilia/previous clots, or coagulopathy/bleeding disorders. ONCOLOGIC: Denies personal history of malignancy. DERMATOLOGIC: Denies rashes or pruritus. PSYCHIATRIC: Denies any suicidal or homicidal ideation. Denies hallucinations. PHYSICAL EXAM GENERAL APPEARANCE: The patient is awake, alert, and oriented, in no acute ca rdiopulmonary distress. NEUROLOGICAL: Cranial nerves II-XII grossly intact. Motor is 5/5 in bilateral upper and lower extremities proximal to distal. No sensory deficits. HEENT: Face is symmetric. Pupils are equal and reactive. Extraocular movements are intact. NECK: Supple. No JVD. No thyromegaly. No submental, submandibular, pre- /postauricular, occipital or supraclavicular lymphadenopathy. CHEST: Normal chest expansion. No Telemetry. LUNGS: Absence of any rales, rhonchi or any wheezing. CARDIOVASCULAR: Regular. S1 and S2 normal. No appreciable rubs, murmurs or gallops. ABDOMEN: Soft, nontender, and nondistended. There is no rebound, voluntary guarding, or rigidity. : Deferred. No Martinez. EXTREMITIES: Non-edematous and not cyanotic. No clubbing. Good capillary refill. SKIN: No skin breakdown. Vital Signs (last 8hr) Date Time Temp Pulse Resp B/P (MAP) Pulse Ox O2 Delivery O2 Flow Rate FiO2 09/13/24 12:00 98 Nasal Cannula* 2 28 09/13/24 12:00 98.1 85 17 127/81 97 Nasal Cannula 2.0 09/13/24 11:00 75 16 100/53 98 Nasal Cannula 2.0 09/13/24 10:30 80 18 116/66 95 Nasal Cannula 2.0 09/13/24 10:00 76 12 122/73 99 Nasal Cannula 2.0 09/13/24 09:00 76 18 98/51 96 Nasal Cannula 2.0 09/13/24 08:00 98 Nasal Cannula* 2 28 09/13/24 08:00 98.2 69 14 103/61 96 Nasal Cannula 2.0 09/13/24 07:00 77 17 100/64 98 Nasal Cannula 2.0 09/13/24 06:45 73 13 105/65 96 Nasal Cannula 2.0 09/13/24 06:00 76 14 104/73 96 Nasal Cannula 2.0 LABS: Laboratory: Test 09/13/24 10:48 09/13/24 09:41 09/12/24 09:54 09/12/24 07:17 Range/Units Whole Blood Glucose 102 70-110 MG/DL White Blood Count 6.8 4.8-10.8 K/uL Red Blood Count 2.80 L 4.50-6.20 MIL/uL Hemoglobin 9.5 L 14.0-18.0 g/dL Hematocrit 28.1 L 42-54 % Mean Corpuscular Volume 100.4 H 79-99 fL Mean Corpuscular Hemoglobin 33.9 H 27.0-33.0 pg Mean Corpuscular Hemoglobin Concent 33.8 32.0-36.0 g/dL Red Cell Distribution Width 19.0 H 11.0-15.5 % Platelet Count 150 130-400 K/uL Mean Platelet Volume 9.5 7.5-10.5 fL Immature Granulocyte % (Auto) 0.6 0-1 % Neutrophils (%) (Auto) 70.6 40.0-77.0 % Lymphocytes (%) (Auto) 17.7 L 21.0-51.0 % Monocytes (%) (Auto) 9.9 3.0-13.0 % Eosinophils (%) (Auto) 0.9 0.0-8.0 % Basophils (%) (Auto) 0.3 0.0-5.0 % Neutrophils # (Auto) 4.8 1.8-7.7 K/uL Lymphocytes # (Auto) 1.2 1.0-4.8 K/uL Monocytes # (Auto) 0.7 0.1-1.0 K/uL Eosinophils # (Auto) 0.06 0.00-0.70 K/uL Basophils # (Auto) 0.02 0.00-0.20 K/uL Absolute Immature Granulocyte (auto 0.04 0-1 K/uL Nucleated Red Blood Cells 0.0 0.0-0.19 % Sodium Level 134 L 136-145 mmol/L Potassium Level 4.7 3.5-5.1 mmol/L Chloride Level 103 101-111 mmol/L Carbon Dioxide Level 30 21-32 mmol/L Blood Urea Nitrogen 18 7-18 mg/dL Creatinine 0.5 0.5-1.3 mg/dL Glomerular Filtration Rate Calc 114 >90 mL/min Random Glucose 107 H 70-105 mg/dL Total Calcium 7.7 L 8.5-10.1 mg/dL Serum Alcohol 4 0-10 mg/dL Prothrombin Time 11.3 9.6-11.6 SEC Prothromb Time International Ratio 1.07 0.85-1.15 Activated Partial Thromboplast Time 26.5 26.3-35.5 SEC Serum Osmolality 274 L 278-305 mOsm/kg Total Bilirubin 0.4 0.2-1.0 mg/dL Direct Bilirubin 0.2 0.0-0.3 mg/dL Aspartate Amino Transf (AST/SGOT) 43 H 10-37 U/L Alanine Aminotransferase (ALT/SGPT) 20 12-78 U/L Alkaline Phosphatase 60 50-136 U/L Total Protein 4.2 L 6.0-8.3 g/dL Albumin 1.9 L 3.5-5.0 g/dL Test 09/12/24 05:45 09/12/24 02:05 09/12/24 01:50 09/12/24 01:12 Range/Units Phosphorus Level 3.7 2.5-4.9 mg/dL Magnesium Level 1.50 L 1.80-2.40 mg/dL Urine Color LIGHT-YELLOW YELLOW Urine Appearance CLEAR CLEAR Urine pH 5.5 5.0-8.0 Urine Specific [place] 1.021 1.001-1.031 Urine Protein NEGATIVE NEGATIVE mg/dL Urine Glucose (UA) NEGATIVE NEGATIVE mg/dL Urine Ketones 5 H NEGATIVE mg/dL Urine Occult Blood NEGATIVE NEGATIVE Urine Nitrate NEGATIVE NEGATIVE Urine Bilirubin NEGATIVE NEGATIVE mg/dL Urine Urobilinogen 0.2 0.2-1.0 mg/dL Urine Leukocyte Esterase NEGATIVE NEGATIVE Yesi/uL Urine RBC 2-5 H 0-1 /HPF Urine WBC 0-1 0-1 /HPF Urine Bacteria None None Seen /HPF Urine Osmolality 555 50-1200 mOsm/kg Urine Random Sodium 19 L 40-220 mmol/l Stool Occult Blood POSITIVE H NEGATIVE Reticulocyte Count (auto) 4.54285 H 0.42-2.23 % Immature Reticulocyte Fraction 19.80 H 0.18-0.48 % Iron Level 77 65-175 mcg/dL Total Iron Binding Capacity 124 L 250-450 mcg/dL Percent Iron Saturation 62.0 H 30-44 % Lactate Dehydrogenase 125 81-234 U/L Vitamin B12 Level 248 193-986 pg/mL Folic Acid (LAB) 7.80 2-20 ng/mL Test 09/11/24 23:01 Range/Units Red Blood Cell Morphology See comments Current Medications Medications (Trade) Dose Ordered Sig/Samina Route PRN Reason Start Time Stop Time Status Last Admin Dose Admin Acetaminophen (TYLenol 325MG TAB) 650 mg Q6H PRN PO TEMPERATURE GREATER THAN 101.5 09/12/24 01:30 10/12/24 01:29 Acetaminophen/ Hydrocodone Bitart (NORco 10) 1 tab Q6H PRN PO SEVERE PAIN (7-10) 09/12/24 09:00 09/12/24 09:59 DC Acetaminophen/ Hydrocodone Bitart (NORco 5/325MG) 1 tab Q6H PRN PO MODERATE PAIN (4-6) 09/12/24 09:00 09/12/24 09:59 DC Ceftriaxone Sodium (Rocephin 2gm Inj) 2 gm Q24H IVPB 09/12/24 09:00 09/22/24 08:59 09/13/24 08:10 2 GM Chlordiazepoxide HCl (LIBrium 25 MG CAP) 25 mg Q2H PRN PO ALCOHOL WITHDRAWAL PROTOCOL 09/12/24 09:00 09/19/24 08:59 Hydromorphone HCl (DiLAUDid 0.5MG INJ) 0.5 mg Q4H PRN IVP BREAKTHROUGH PAIN ONLY 09/12/24 09:00 09/17/24 08:59 Lactulose (Constulose 20gm/ 30ml Udcup) 20 gm Q2H PO 09/12/24 15:00 09/12/24 18:00 DC 09/12/24 17:11 20 GM Lorazepam (AtiVAN) 2 mg Q4H PRN IVP ALCOHOL WITHDRAWAL PROTOCOL 09/12/24 09:00 09/19/24 08:59 Magnesium Sulfate 50 ml @ 0 mls/hr PROTOCOL PRN IV MAGNESIUM PROTOCOL 09/12/24 08:00 10/12/24 07:59 09/12/24 07:51 25 MLS/HR Morphine Sulfate (morPHINE 2MG SYG) 2 mg Q4H PRN IVP SEVERE PAIN (7-10) 09/12/24 09:30 09/19/24 09:29 09/13/24 06:56 2 MG Octreotide Acetate 1250 mcg/ Sodium Chloride 250 ml @ 0 mls/hr PROTOCOL IV 09/12/24 04:00 10/12/24 03:59 09/12/24 04:37 5 MLS/HR Octreotide Acetate (SandoSTATIN) 1,000 mcg ONCE IV 09/12/24 04:00 09/12/24 03:58 DC Ondansetron HCl (zoFRAN 4MG INJ) 4 mg Q6H PRN IV NAUSEA/VOMITING 09/12/24 01:30 10/12/24 01:29 Pantoprazole Sodium 80 mg/ Sodium Chloride 100 ml @ 10 mls/hr Q10H IVP 09/12/24 04:00 10/12/24 03:59 09/13/24 12:43 10 MLS/HR Pharmacy Profile Note (Pharmacy Communication) 1 each PROTOCOL PRN MISC ETOH Withdrawal Score changes 09/12/24 09:00 09/19/24 08:59 Polyethylene Glycol (MIRalax 3350 17 GM POWD.PACK) 17 gm DAILY PO 09/13/24 09:00 10/13/24 08:59 09/13/24 08:10 17 GM Sodium Chloride 1,000 ml @ 75 mls/hr [id number] IV 09/12/24 01:30 10/12/24 01:29 09/12/24 02:42 75 MLS/HR Thiamine HCl 100 mg/Folic Acid 1 mg/Multivitamins/ Minerals 10 ml/ Sodium Chloride 1,011.2 ml @ 100 mls/ hr Q10H IV 09/13/24 06:30 09/13/24 12:32 DC 09/13/24 06:49 100 MLS/HR Thiamine HCl 100 mg/Folic Acid 1 mg/Multivitamins/ Minerals 10 ml/ Sodium Chloride 1,011.2 ml @ 100 mls/ hr Q24H IV 09/12/24 09:00 09/13/24 06:16 DC 09/12/24 17:12 100 MLS/HR Thiamine HCl 100 mg/Folic Acid 1 mg/Multivitamins/ Minerals 10 ml/ Sodium Chloride 1,011.2 ml @ 100 mls/ hr Q24H IV 09/14/24 06:30 09/14/24 16:37 DIAGNOSTICS / RADIOLOGY: [ ] ASSESSMENT: Acute GI bleed, POA Hypotension, POA Macrocytic hyperchromic anemia, POA Mild hyponatremia, POA Multiple compression fractures, T3, T4, T7, L1, L2, POA Nephrolithiasis, POA, 7.3 mm stone in the right renal pelvis, by CT on Severe aortic stenosis on Echo (09/13/24) PLAN: - EGD pending, will follow up - Colonoscopy pending, will follow up - Continue PRN pain control - Trend Hgb, transfuse if < 7.0 - Continue octreotide - Continue pantoprazole - Continue CIWA protocol - Cardiology consulted, appreciate recommendations - GI consulted, appreciate recommendations Disposition: Pending EGD, GI recommendations, improvement in clinical status ROSANGELA ONEIL MD Sep 13, 2024 13:31
--- NOTE | 2024-09-13 13:32 | HMCIMG ---
MR SPINAL CANAL, LUMB W/WO CON HISTORY: No additional history given. COMPARISON: None TECHNIQUE: MRI of the lumbar spine was performed utilizing multiple pulse sequences in axial , coronal and sagittal plane. Patient was given 19 cc of purulent through intravenous route. FINDINGS: Compression fracture is seen involving L2 with 70% loss of height. No loss of vertebral height is seen. There is straightening of normal lumbar curvature which may be related to muscle spasm or positioning. Degenerative disc signals are present at all lumbar spine levels. Visualized distal conus is unremarkable. There is right lower pole renal cyst measuring 1.8 cm. At the L1-2 level, there is spondylotic disc with bilateral ligamentum flavum hypertrophy causing anterior thecal sac compression with bilateral lateral recess stenosis and bilateral neural foraminal stenosis. The thecal sac measures approximately 6.9 mm in its anterior posterior dimension. At the L2-3 level, there is spondylotic disc with bilateral ligamentum flavum hypertrophy causing anterior thecal sac compression with bilateral lateral recess stenosis and bilateral neural foraminal stenosis. The thecal sac measures approximately 6.9 mm in its anterior posterior dimension. At the L3-4 level, there is spondylotic disc with disc bulge and bilateral ligamentum flavum hypertrophy causing anterior thecal sac compression with bilateral lateral recess stenosis and bilateral neural foraminal stenosis. The thecal sac measures approximately 3.8 mm in its anterior posterior dimension. At the L4-5 level, there is spondylotic disc with central disc protrusion/herniation causing anterior thecal sac compression with bilateral lateral recess stenosis and mild bilateral neural foraminal stenosis. The thecal sac measures approximately 8.2 mm in its anterior posterior dimension. At the L5-S1 level, there is spondylotic disc causing anterior thecal sac compression with bilateral lateral recess stenosis and mild bilateral neural foraminal stenosis. The thecal sac measures approximately 10.3 mm in its anterior posterior dimension. IMPRESSION: 1. Compression fracture of L2 with 70% loss of height and bone edema. DJD with lumbar spine spondylosis and central canal narrowing as described above.
[2024-09-13] MEDS: BACITRACIN 1 EACH PACKET TP SCH (20:50)
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
[2024-09-14] VITALS (41 sets, daily range): BP systolic 98–135; BP diastolic 47–89; PULSE 69–103; RESP 10–24; TEMP 97.7–98.4; O2SAT 92–95
[2024-09-14 03:45] LABS: BASOPHILS # (AUTO) 0.03 K/uL (0.00-0.20); BASOPHILS % (AUTO) 0.4 % (0.0-5.0); EOSINOPHILS % (AUTO) 1.5 % (0.0-8.0); HEMATOCRIT 27.5 % (42-54); IMMATURE GRANULOCYTE ABSOLUTE 0.03 K/uL (0-1); LYMPHOCYTES # (AUTO) 1.2 K/uL (1.0-4.8); LYMPHOCYTES % (AUTO) 17.8 % (21.0-51.0); MEAN CORPUSCULAR HEMOGLOBIN 33.5 pg (27.0-33.0); MEAN CORPUSCULAR HGB CONC 33.1 g/dL (32.0-36.0); MEAN CORPUSCULAR VOLUME 101.1 fL (79-99); MONOCYTES # (AUTO) 0.7 K/uL (0.1-1.0); MONOCYTES % (AUTO) 10.8 % (3.0-13.0); NEUTROPHILS # (AUTO) 4.7 K/uL (1.8-7.7); NEUTROPHILS % (AUTO) 69.1 % (40.0-77.0); PLATELET COUNT (AUTO) 164 K/uL (130-400); RED BLOOD CELL COUNT(AUTO) 2.72 MIL/uL (4.50-6.20); RED CELL DISTRIBUTION WIDTH 18.6 % (11.0-15.5); WHITE BLOOD COUNT (AUTO) 6.8 K/uL (4.8-10.8)
[2024-09-14 03:54] LABS: CREATININE 0.5 mg/dL (0.5-1.3)
[2024-09-14] MEDS: THIAMINE HCL 100 MG, FOLic ACID 5 MG/ML VIAL 1 MG, M.V.I. IV [ADULT] 10 ML in 0.9%NACL ... IV SCH (09:33)
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
--- NOTE | 2024-09-14 12:22 | PN ---
[facility] PROGRESS NOTE Date of Service: Sep 14, 2024 Time of Service: 12:11 SUBJECTIVE: 09/13 patient seen at bedside, no acute events overnight. GI recommending EGD and colonoscopy, we will follow up postprocedure. He was transfused with 2 units packed red blood cell, hemoglobin now at 9.5, remainder of his labs are relatively unremarkable. MRI of thoracic spine showing subacute compression fracture involving T8 with 50% loss of height, no evidence of metastatic disease. Echo showing normal EF of 50-55% with severe valvular aortic stenosis, peak aortic valve gradient of 86 mm Hg, per Cardiology patient may need surgical intervention to address aortic valve 09/14 patient seen at bedside, no acute events overnight. EGD pending later today, we will follow up postprocedure. He has been afebrile, hemodynamically stable saturating well on 2 L nasal cannula. Hemoglobin decreased from 9.5 down to 9.1, remainder of his labs are relatively unremarkable. REVIEW OF SYSTEMS 12 point review of systems negative unless noted in HPI PHYSICAL EXAM GENERAL APPEARANCE: The patient is awake, alert, and oriented, in no acute cardiopulmonary distress. NEUROLOGICAL: Cranial nerves II-XII grossly intact. Motor is 5/5 in bilateral upper and lower extremities proximal to distal. No sensory deficits. HEENT: Face is symmetric. Pupils are equal and reactive. Extraocular movements are intact. NECK: Supple. No JVD. No thyromegaly. No submental, submandibular, pre- /postauricular, occipital or supraclavicular lymphadenopathy. CHEST: Normal chest expansion. No Telemetry. LUNGS: Absence of any rales, rhonchi or any wheezing. CARDIOVASCULAR: Regular. S1 and S2 normal. No appreciable rubs, murmurs or gallops. ABDOMEN: Soft, nontender, and nondistended. There is no rebound, voluntary guarding, or rigidity. : Deferred. No Martinez. EXTREMITIES: Non-edematous and not cyanotic. No clubbing. Good capillary refill. SKIN: No skin breakdown. Vital Signs (last 8hr) Date Time Temp Pulse Resp B/P (MAP) Pulse Ox O2 Delivery O2 Flow Rate FiO2 09/14/24 11:33 95 Nasal Cannula* 2 28 09/14/24 11:00 98.1 82 14 124/78 99 Nasal Cannula 2.0 09/14/24 10:00 82 16 135/81 97 Nasal Cannula 2.0 09/14/24 09:00 83 21 124/73 99 Nasal Cannula 2.0 09/14/24 08:00 97.9 79 16 125/79 98 Nasal Cannula 2.0 09/14/24 07:53 95 Nasal Cannula* 2 28 09/14/24 07:00 79 22 123/81 95 Nasal Cannula 2.0 09/14/24 06:45 76 15 107/66 94 Nasal Cannula 2.0 09/14/24 06:30 80 13 110/57 92 Nasal Cannula 2.0 09/14/24 06:15 72 12 117/71 96 Nasal Cannula 2.0 09/14/24 06:00 73 10 102/47 95 Nasal Cannula 2.0 09/14/24 05:45 72 12 115/66 94 Nasal Cannula 2.0 09/14/24 05:30 77 13 118/74 96 Nasal Cannula 2.0 09/14/24 05:15 71 12 119/72 99 Nasal Cannula 09/14/24 05:02 74 14 123/76 94 Nasal Cannula 2.0 09/14/24 04:45 76 14 119/75 96 Nasal Cannula 2.0 09/14/24 04:30 75 16 121/78 93 Nasal Cannula 2.0 09/14/24 04:15 78 19 120/79 93 Nasal Cannula 2.0 LABS: Laboratory: Test 09/14/24 03:33 09/13/24 10:48 Range/Units White Blood Count 6.8 4.8-10.8 K/uL Red Blood Count 2.72 L 4.50-6.20 MIL/uL Hemoglobin 9.1 L 14.0-18.0 g/dL Hematocrit 27.5 L 42-54 % Mean Corpuscular Volume 101.1 H 79-99 fL Mean Corpuscular Hemoglobin 33.5 H 27.0-33.0 pg Mean Corpuscular Hemoglobin Concent 33.1 32.0-36.0 g/dL Red Cell Distribution Width 18.6 H 11.0-15.5 % Platelet Count 164 130-400 K/uL Mean Platelet Volume 9.7 7.5-10.5 fL Immature Granulocyte % (Auto) 0.4 0-1 % Neutrophils (%) (Auto) 69.1 40.0-77.0 % Lymphocytes (%) (Auto) 17.8 L 21.0-51.0 % Monocytes (%) (Auto) 10.8 3.0-13.0 % Eosinophils (%) (Auto) 1.5 0.0-8.0 % Basophils (%) (Auto) 0.4 0.0-5.0 % Neutrophils # (Auto) 4.7 1.8-7.7 K/uL Lymphocytes # (Auto) 1.2 1.0-4.8 K/uL Monocytes # (Auto) 0.7 0.1-1.0 K/uL Eosinophils # (Auto) 0.10 0.00-0.70 K/uL Basophils # (Auto) 0.03 0.00-0.20 K/uL Absolute Immature Granulocyte (auto 0.03 0-1 K/uL Nucleated Red Blood Cells 0.0 0.0-0.19 % Sodium Level 135 L 136-145 mmol/L Potassium Level 4.0 3.5-5.1 mmol/L Chloride Level 104 101-111 mmol/L Carbon Dioxide Level 30 21-32 mmol/L Blood Urea Nitrogen 13 7-18 mg/dL Creatinine 0.5 0.5-1.3 mg/dL Glomerular Filtration Rate Calc 114 >90 mL/min Random Glucose 110 H 70-105 mg/dL Total Calcium 7.9 L 8.5-10.1 mg/dL Whole Blood Glucose 102 70-110 MG/DL Current Medications Medications (Trade) Dose Ordered Sig/Samina Route PRN Reason Start Time Stop Time Status Last Admin Dose Admin Acetaminophen (TYLenol 325MG TAB) 650 mg Q6H PRN PO TEMPERATURE GREATER THAN 101.5 09/12/24 01:30 10/12/24 01:29 Acetaminophen/ Hydrocodone Bitart (NORco 10) 1 tab Q6H PRN PO SEVERE PAIN (7-10) 09/12/24 09:00 09/12/24 09:59 DC Acetaminophen/ Hydrocodone Bitart (NORco 5/325MG) 1 tab Q6H PRN PO MODERATE PAIN (4-6) 09/12/24 09:00 09/12/24 09:59 DC Bacitracin (Bacitracin) 1 each BID TP 09/13/24 21:00 09/27/24 20:59 09/14/24 08:24 1 EACH Ceftriaxone Sodium (Rocephin 2gm Inj) 2 gm Q24H IVPB 09/12/24 09:00 09/22/24 08:59 09/14/24 08:23 2 GM Chlordiazepoxide HCl (LIBrium 25 MG CAP) 25 mg Q2H PRN PO ALCOHOL WITHDRAWAL PROTOCOL 09/12/24 09:00 09/19/24 08:59 Hydromorphone HCl (DiLAUDid 0.5MG INJ) 0.5 mg Q4H PRN IVP BREAKTHROUGH PAIN ONLY 09/12/24 09:00 09/17/24 08:59 Lactulose (Constulose 20gm/ 30ml Udcup) 20 gm Q2H PO 09/12/24 15:00 09/12/24 18:00 DC 09/12/24 17:11 20 GM Lorazepam (AtiVAN) 2 mg Q4H PRN IVP ALCOHOL WITHDRAWAL PROTOCOL 09/12/24 09:00 09/19/24 08:59 Magnesium Sulfate 50 ml @ 0 mls/hr PROTOCOL PRN IV MAGNESIUM PROTOCOL 09/12/24 08:00 10/12/24 07:59 09/12/24 07:51 25 MLS/HR Morphine Sulfate (morPHINE 2MG SYG) 2 mg Q4H PRN IVP SEVERE PAIN (7-10) 09/12/24 09:30 09/19/24 09:29 09/14/24 08:23 2 MG Octreotide Acetate 1250 mcg/ Sodium Chloride 250 ml @ 0 mls/hr PROTOCOL IV 09/12/24 04:00 10/12/24 03:59 09/13/24 23:02 5 MLS/HR Octreotide Acetate (SandoSTATIN) 1,000 mcg ONCE IV 09/12/24 04:00 09/12/24 03:58 DC Ondansetron HCl (zoFRAN 4MG INJ) 4 mg Q6H PRN IV NAUSEA/VOMITING 09/12/24 01:30 10/12/24 01:29 Pantoprazole Sodium 80 mg/ Sodium Chloride 100 ml @ 10 mls/hr Q10H IVP 09/12/24 04:00 10/12/24 03:59 09/14/24 08:24 10 MLS/HR Pharmacy Profile Note (Pharmacy Communication) 1 each PROTOCOL PRN MISC ETOH Withdrawal Score changes 09/12/24 09:00 09/19/24 08:59 Polyethylene Glycol (MIRalax 3350 17 GM POWD.PACK) 17 gm DAILY PO 09/13/24 09:00 10/13/24 08:59 09/13/24 08:10 17 GM Sodium Chloride 1,000 ml @ 75 mls/hr [id number] IV 09/12/24 01:30 10/12/24 01:29 09/14/24 02:25 75 MLS/HR Thiamine HCl 100 mg/Folic Acid 1 mg/Multivitamins/ Minerals 10 ml/ Sodium Chloride 1,011.2 ml @ 100 mls/ hr Q10H IV 09/13/24 06:30 09/13/24 12:32 DC 09/13/24 06:49 100 MLS/HR Thiamine HCl 100 mg/Folic Acid 1 mg/Multivitamins/ Minerals 10 ml/ Sodium Chloride 1,011.2 ml @ 100 mls/ hr Q24H IV 09/12/24 09:00 09/13/24 06:16 DC 09/12/24 17:12 100 MLS/HR Thiamine HCl 100 mg/Folic Acid 1 mg/Multivitamins/ Minerals 10 ml/ Sodium Chloride 1,011.2 ml @ 100 mls/ hr Q24H IV 09/14/24 06:30 09/14/24 16:37 09/14/24 09:33 100 MLS/HR DIAGNOSTICS / RADIOLOGY: [ ] ASSESSMENT: Acute GI bleed, POA Hypotension, POA Macrocytic hyperchromic anemia, POA Mild hyponatremia, POA Multiple compression fractures, T3, T4, T7, L1, L2, POA Nephrolithiasis, POA, 7.3 mm stone in the right renal pelvis, by CT on Severe aortic stenosis on Echo (09/13/24) Hyponatremia Hx of alcohol abuse Tobacco use disorder PLAN: - EGD pending, will follow up - Colonoscopy pending, will follow up - Continue PRN pain control - Trend Hgb, transfuse if < 7.0 - Continue octreotide - Continue pantoprazole - Continue [facility] protocol - Cardiology consulted, appreciate recommendations - GI consulted, appreciate recommendations Disposition: Pending EGD, GI recommendations, improvement in clinical status ROSANGELA ONEIL MD Sep 14, 2024 12:22
--- NOTE | 2024-09-14 12:55 | NUR ---
EGD GI NURSE AT BEDSIDE TO TRANSPORT PATIENT FOR EGD. FAMILY AT BEDSIDE. VS NOTED IN EMR.
[2024-09-14] MEDS ORDERED: proPOFol 10 MG/ML 20ML VIAL IV ONE (14:03)
[2024-09-14] MEDS ORDERED: LIDOCAINE PF 100MG/5ML (2%) SYRINGE 5ML ONE (14:03)
[2024-09-14] MEDS: IpraTROPium 0.5 MG/2.5 ML INH IH ONE (15:08)
[2024-09-14] MEDS ORDERED: PHARMACY COMMUNICATION MISC SCH (16:00)
[2024-09-14] MEDS: ondanSETRON 4MG INJ IV PRN (19:58)
[2024-09-14] MEDS: SUCRALFATE 1 GM TABLET PO SCH (20:10)
[2024-09-14] MEDS: dexaMETHasone 4 MG TAB PO SCH (20:10)
--- NOTE | 2024-09-14 20:10 | PN ---
Cardiology Progress Note Date of Service: 09/14/2024 Attending General Foreman: Dr. Domo Watters Primary General Foreman: Dr. Colton Olson Reason for Consult: Preoperative risk assessment Problem List: -Intractable back pain secondary to multiple compression fractures (T3, T4, T7, L1, L2) -Recent mechanical fall -Acute blood loss anemia s/p PRBC transfusion -Suspected GI bleed (Positive fecal occult), pending EGD -Electrolyted derangement -Severe (M mmHg, P mmHg, TALHA: 0.6 cm2) by echo done 09/12/2024 -Alcohol abuse with concern for withdrawl -Low normal LV systolic function (LVEF: 50-55% by echo done 09/12/2024) -COPD -IPF -Tobacco abuse Subjective: This is a 64y/o male who was seen and evaluated in the ICU today. He denies edagr citve complaint complaints including chest pain, chest pressure, palpitations, or shortness of breath. There were no overnight reported events. The patient is pending to undergo any EGD later today. Vitals/Labs Vital Signs Date Time Temp Pulse Resp B/P (MAP) Pulse Ox O2 Delivery O2 Flow Rate FiO2 09/14/24 18:00 85 24 132/73 92 Nasal Cannula 2.0 09/14/24 17:00 97.9 09/14/24 16:00 28 General: Awake and alert. No acute distress. Chronically ill appearing. HEENT: Normocephalic, atraumatic. EOMI. Oral mucosa was moist. Neck: No masses, JVD, or carotid bruits. Lungs: No respiratory distress. SCM. Bilateral air entry. Diminished breath sounds noted to the bilateral lower lung marroquin. Cardio: Regular rate. Normal S1 and S2. Systolic murmur best heard at the RUSB. Abdomen: Soft, nontender, nondistended. No organomegaly. Normoactive bowel sounds x 4 quadrants. Extremities. No edema, clubbing, or cyanosis. +2 pulses noted throughout. Neuro: Cranial nerves II through XII are grossly intact. No focal deficits identified. Laboratory Tests 09/14/24 03:33 Assessment: -Intractable back pain secondary to multiple compression fractures (T3, T4, T7, L1, L2) -Recent mechanical fall -Acute blood loss anemia s/p PRBC transfusion -Suspected GI bleed (Positive fecal occult), pending EGD -Electrolyted derangement -Severe (M mmHg, P mmHg, TALHA: 0.6 cm2) by echo done 09/12/2024 -Alcohol abuse with concern for withdrawl -Low normal LV systolic function (LVEF: 50-55% by echo done 09/12/2024) -COPD -IPF -Tobacco abuse Plan: 1. Severe (M mmHg, P mmHg, TALHA: 0.6 cm2) by echo done 09/12/2024 -The patient is scheduled to undergo an EGD today to evaluate the etiology behind his acute blood loss anemia (possible acquired von Willebrand disease in the setting of severe aortic stenosis). -Once the source of the patient's underlying anemia has been evaluated and effectively treated, we can consider pursuing further evaluation of the patient's coronary anatomy with a [facility]/coronary angiogram in order to determine the patient's candidacy for TAVR vs SAVR, but this may be deferred to the outpatient service. -We will reassess the patient's hemodynamics over the next 24 hours in order to determine his candidacy for further optimization of medical therapy with initiating BB therapy. DOMO WATTERS MD Sep 14, 2024 20:10
[2024-09-14] MEDS: IpraTROPium 0.5 MG/2.5 ML INH IH SCH (23:57)
[2024-09-15] VITALS (24 sets, daily range): BP systolic 106–141; BP diastolic 50–99; PULSE 78–93; RESP 11–24; TEMP 97.4–98.1; O2SAT 89–94
[2024-09-15 04:25] LABS: BASOPHILS # (AUTO) 0.01 K/uL (0.00-0.20); BASOPHILS % (AUTO) 0.1 % (0.0-5.0); HEMATOCRIT 29.2 % (42-54); IMMATURE GRANULOCYTE ABSOLUTE 0.08 K/uL (0-1); LYMPHOCYTES # (AUTO) 0.5 K/uL (1.0-4.8); LYMPHOCYTES % (AUTO) 6.3 % (21.0-51.0); MEAN CORPUSCULAR HEMOGLOBIN 34.4 pg (27.0-33.0); MEAN CORPUSCULAR HGB CONC 33.2 g/dL (32.0-36.0); MEAN CORPUSCULAR VOLUME 103.5 fL (79-99); MONOCYTES # (AUTO) 0.4 K/uL (0.1-1.0); MONOCYTES % (AUTO) 5.7 % (3.0-13.0); NEUTROPHILS # (AUTO) 6.4 K/uL (1.8-7.7); NEUTROPHILS % (AUTO) 86.8 % (40.0-77.0); PLATELET COUNT (AUTO) 187 K/uL (130-400); RED BLOOD CELL COUNT(AUTO) 2.82 MIL/uL (4.50-6.20); RED CELL DISTRIBUTION WIDTH 18.2 % (11.0-15.5); WHITE BLOOD COUNT (AUTO) 7.3 K/uL (4.8-10.8)
[2024-09-15 04:34] LABS: CREATININE 0.6 mg/dL (0.5-1.3); MAGNESIUM 1.5 mg/dL (1.80-2.40); POTASSIUM 4.3 mmol/L (3.5-5.1)
[2024-09-15] MEDS: PANTOPrazole 40 MG TAB DR PO SCH (08:52)
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
--- NOTE | 2024-09-15 17:18 | PN ---
[facility] PROGRESS NOTE Date of Service: Sep 15, 2024 Time of Service: 17:14 SUBJECTIVE: 09/13 patient seen at bedside, no acute events overnight. GI recommending EGD and colonoscopy, we will follow up postprocedure. He was transfused with 2 units packed red blood cell, hemoglobin now at 9.5, remainder of his labs are relatively unremarkable. MRI of thoracic spine showing subacute compression fracture involving T8 with 50% loss of height, no evidence of metastatic disease. Echo showing normal EF of 50-55% with severe valvular aortic stenosis, peak aortic valve gradient of 86 mm Hg, per Cardiology patient may need surgical intervention to address aortic valve 09/14 patient seen at bedside, no acute events overnight. EGD pending later today, we will follow up postprocedure. He has been afebrile, hemodynamically stable saturating well on 2 L nasal cannula. Hemoglobin decreased from 9.5 down to 9.1, remainder of his labs are relatively unremarkable. 09/15 patient is seen and examined at bedside, no acute events overnight, case discussed with the RN, patient alert and oriented x3, following commands, BP 115/70, afebrile, saturating 98% on 2 L nasal cannula. Hemoglobin today 9.7, stable, hematocrit 29.2. Magnesium 1.5. EGD done 09/14 findings of 4 duodenal ulcers s/p clipping x 1. REVIEW OF SYSTEMS 12 point review of systems negative unless noted in HPI PHYSICAL EXAM GENERAL APPEARANCE: The patient is awake, alert, and oriented, in no acute cardiopulmonary distress. NEUROLOGICAL: Cranial nerves II-XII grossly intact. Motor is 5/5 in bilateral upper and lower extremities proximal to distal. No sensory deficits. HEENT: Face is symmetric. Pupils are equal and reactive. Extraocular movements are intact. NECK: Supple. No JVD. No thyromegaly. No submental, submandibular, pre- /postauricular, occipital or supraclavicular lymphadenopathy. CHEST: Normal chest expansion. No Telemetry. LUNGS: Absence of any rales, rhonchi or any wheezing. CARDIOVASCULAR: Regular. S1 and S2 normal. No appreciable rubs, murmurs or gallops. ABDOMEN: Soft, nontender, and nondistended. There is no rebound, voluntary guarding, or rigidity. : Deferred. No Martinez. EXTREMITIES: Non-edematous and not cyanotic. No clubbing. Good capillary refill. SKIN: No skin breakdown. Vital Signs (last 8hr) Date Time Temp Pulse Resp B/P (MAP) Pulse Ox O2 Delivery O2 Flow Rate FiO2 09/15/24 14:00 83 15 115/70 90 Nasal Cannula 2.0 09/15/24 13:00 87 21 106/75 100 Nasal Cannula 2.0 09/15/24 12:00 97.9 88 12 117/64 100 Nasal Cannula 2.0 09/15/24 11:45 93 18 09/15/24 11:00 89 23 132/99 95 Nasal Cannula 2.0 09/15/24 10:00 86 12 106/53 91 Nasal Cannula 2.0 LABS: Laboratory: Test 09/15/24 04:05 Range/Units White Blood Count 7.3 4.8-10.8 K/uL Red Blood Count 2.82 L 4.50-6.20 MIL/uL Hemoglobin 9.7 L 14.0-18.0 g/dL Hematocrit 29.2 L 42-54 % Mean Corpuscular Volume 103.5 H 79-99 fL Mean Corpuscular Hemoglobin 34.4 H 27.0-33.0 pg Mean Corpuscular Hemoglobin Concent 33.2 32.0-36.0 g/dL Red Cell Distribution Width 18.2 H 11.0-15.5 % Platelet Count 187 130-400 K/uL Mean Platelet Volume 9.1 7.5-10.5 fL Immature Granulocyte % (Auto) 1.1 H 0-1 % Neutrophils (%) (Auto) 86.8 H 40.0-77.0 % Lymphocytes (%) (Auto) 6.3 L 21.0-51.0 % Monocytes (%) (Auto) 5.7 3.0-13.0 % Eosinophils (%) (Auto) 0.0 0.0-8.0 % Basophils (%) (Auto) 0.1 0.0-5.0 % Neutrophils # (Auto) 6.4 1.8-7.7 K/uL Lymphocytes # (Auto) 0.5 L 1.0-4.8 K/uL Monocytes # (Auto) 0.4 0.1-1.0 K/uL Eosinophils # (Auto) 0.00 0.00-0.70 K/uL Basophils # (Auto) 0.01 0.00-0.20 K/uL Absolute Immature Granulocyte (auto 0.08 0-1 K/uL Nucleated Red Blood Cells 0.0 0.0-0.19 % White Cell Morphology Comment See comments Sodium Level 134 L 136-145 mmol/L Potassium Level 4.3 3.5-5.1 mmol/L Chloride Level 103 101-111 mmol/L Carbon Dioxide Level 30 21-32 mmol/L Blood Urea Nitrogen 13 7-18 mg/dL Creatinine 0.6 0.5-1.3 mg/dL Glomerular Filtration Rate Calc 108 >90 mL/min Random Glucose 147 H 70-105 mg/dL Total Calcium 8.0 L 8.5-10.1 mg/dL Magnesium Level 1.50 L 1.80-2.40 mg/dL Current Medications Medications (Trade) Dose Ordered Sig/Samina Route PRN Reason Start Time Stop Time Status Last Admin Dose Admin Acetaminophen (TYLenol 325MG TAB) 650 mg Q6H PRN PO TEMPERATURE GREATER THAN 101.5 09/12/24 01:30 10/12/24 01:29 Acetaminophen/ Hydrocodone Bitart (NORco 10) 1 tab Q6H PRN PO SEVERE PAIN (7-10) 09/12/24 09:00 09/12/24 09:59 DC Acetaminophen/ Hydrocodone Bitart (NORco 5/325MG) 1 tab Q6H PRN PO MODERATE PAIN (4-6) 09/12/24 09:00 09/12/24 09:59 DC Bacitracin (Bacitracin) 1 each BID TP 09/13/24 21:00 09/27/24 20:59 09/15/24 09:13 1 EACH Ceftriaxone Sodium (Rocephin 2gm Inj) 2 gm Q24H IVPB 09/12/24 09:00 09/22/24 08:59 09/15/24 08:52 2 GM Chlordiazepoxide HCl (LIBrium 25 MG CAP) 25 mg Q2H PRN PO ALCOHOL WITHDRAWAL PROTOCOL 09/12/24 09:00 09/19/24 08:59 Dexamethasone (DeCADron 4 mg TAB) 4 mg Q12H9 PO 09/14/24 21:00 10/14/24 20:59 09/15/24 08:52 4 MG Hydromorphone HCl (DiLAUDid 0.5MG INJ) 0.5 mg Q4H PRN IVP BREAKTHROUGH PAIN ONLY 09/12/24 09:00 09/17/24 08:59 Ipratropium [place] (AtrovENT UD) 0.5 MG [id number] IH 09/15/24 00:00 10/15/24 00:00 09/15/24 11:45 0.5 MG Lactulose (Constulose 20gm/ 30ml Udcup) 20 gm Q2H PO 09/12/24 15:00 09/12/24 18:00 DC 09/12/24 17:11 20 GM Lorazepam (AtiVAN) 2 mg Q4H PRN IVP ALCOHOL WITHDRAWAL PROTOCOL 09/12/24 09:00 09/19/24 08:59 Magnesium Sulfate 50 ml @ 0 mls/hr PROTOCOL PRN IV MAGNESIUM PROTOCOL 09/12/24 08:00 10/12/24 07:59 09/15/24 06:42 25 MLS/HR Morphine Sulfate (morPHINE 2MG SYG) 2 mg Q4H PRN IVP SEVERE PAIN (7-10) 09/12/24 09:30 09/19/24 09:29 09/15/24 13:31 2 MG Octreotide Acetate 1250 mcg/ Sodium Chloride 250 ml @ 0 mls/hr PROTOCOL IV 09/12/24 04:00 09/15/24 08:59 DC 09/13/24 23:02 5 MLS/HR Octreotide Acetate (SandoSTATIN) 1,000 mcg ONCE IV 09/12/24 04:00 09/12/24 03:58 DC Ondansetron HCl (zoFRAN 4MG INJ) 4 mg Q6H PRN IV NAUSEA/VOMITING 09/12/24 01:30 10/12/24 01:29 09/14/24 19:58 4 MG Pantoprazole Sodium (PROTonix 40MG TAB) 40 mg BID PO 09/15/24 09:00 10/15/24 08:59 09/15/24 08:52 40 MG Pantoprazole Sodium 80 mg/ Sodium Chloride 100 ml @ 10 mls/hr Q10H IVP 09/12/24 04:00 09/15/24 08:59 DC 09/15/24 00:25 10 MLS/HR Pharmacy Profile Note (Pharmacy Communication) 1 each ONCE MISC 09/14/24 16:00 09/14/24 15:57 DC Pharmacy Profile Note (Pharmacy Communication) 1 each PROTOCOL PRN MISC ETOH Withdrawal Score changes 09/12/24 09:00 09/19/24 08:59 Polyethylene Glycol (MIRalax 3350 17 GM POWD.PACK) 17 gm DAILY PO 09/13/24 09:00 10/13/24 08:59 09/13/24 08:10 17 GM Sodium Chloride 1,000 ml @ 75 mls/hr [id number] IV 09/12/24 01:30 10/12/24 01:29 09/15/24 06:42 75 MLS/HR Sucralfate (Carafate) 1 gm Q6H PO 09/14/24 20:30 10/14/24 20:29 09/15/24 13:53 1 GM Thiamine HCl 100 mg/Folic Acid 1 mg/Multivitamins/ Minerals 10 ml/ Sodium Chloride 1,011.2 ml @ 100 mls/ hr Q10H IV 09/13/24 06:30 09/13/24 12:32 DC 09/13/24 06:49 100 MLS/HR Thiamine HCl 100 mg/Folic Acid 1 mg/Multivitamins/ Minerals 10 ml/ Sodium Chloride 1,011.2 ml @ 100 mls/ hr Q24H IV 09/12/24 09:00 09/13/24 06:16 DC 09/12/24 17:12 100 MLS/HR Thiamine HCl 100 mg/Folic Acid 1 mg/Multivitamins/ Minerals 10 ml/ Sodium Chloride 1,011.2 ml @ 100 mls/ hr Q24H IV 09/14/24 06:30 09/14/24 16:37 DC 09/14/24 09:33 100 MLS/HR DIAGNOSTICS / RADIOLOGY: [ ] ASSESSMENT: Acute GI bleed, POA Hypotension, POA Macrocytic hyperchromic anemia, POA Mild hyponatremia, POA Multiple compression fractures, T3, T4, T7, L1, L2, POA Nephrolithiasis, POA, 7.3 mm stone in the right renal pelvis, by CT on Severe aortic stenosis on Echo (09/13/24) Hyponatremia Hx of alcohol abuse Tobacco use disorder PLAN: - downgraded to PCU - continue to follow GI input and recommendation -continue Protonix 40 mg p.o. b.i.d. -continue Carafate 1 g p.o. q.6 hours -continue to monitor for signs of withdrawal - Continue PRN pain control - Trend Hgb, transfuse if < 7.0 - Continue CIWA protocol - Cardiology consulted, appreciate recommendations - GI consulted, appreciate recommendations Disposition: Pending improvement in clinical status Total time spent 30 minutes. ROXIE HARPER MD Sep 15, 2024 17:18
--- NOTE | 2024-09-15 18:23 | NUR ---
TRANSFERRED PATIENT TO ROOM 201. REPORT GIVEN TO Aydin JOHN RN. ALL QUESTIONS ANSWERED. PATIENT TRANSFERRED FROM ICU BED TO PCCU BED. ALL PATIENT BELONGINGS TAKEN BY NURSE AND FAMILY MEMBERS. PATIENT LEFT IN CARE OF NURSE AT BEDSIDE.
[2024-09-16] VITALS (15 sets, daily range): BP systolic 115–135; BP diastolic 76–95; PULSE 72–88; RESP 18–20; TEMP 97.5–98.6; O2SAT 92–97
[2024-09-16 03:56] LABS: BASOPHILS # (AUTO) 0.01 K/uL (0.00-0.20); BASOPHILS % (AUTO) 0.1 % (0.0-5.0); HEMATOCRIT 24.1 % (42-54); IMMATURE GRANULOCYTE ABSOLUTE 0.05 K/uL (0-1); LYMPHOCYTES # (AUTO) 0.6 K/uL (1.0-4.8); LYMPHOCYTES % (AUTO) 6.4 % (21.0-51.0); MEAN CORPUSCULAR HEMOGLOBIN 33.5 pg (27.0-33.0); MEAN CORPUSCULAR HGB CONC 33.2 g/dL (32.0-36.0); MEAN CORPUSCULAR VOLUME 100.8 fL (79-99); MONOCYTES # (AUTO) 0.6 K/uL (0.1-1.0); MONOCYTES % (AUTO) 7.3 % (3.0-13.0); NEUTROPHILS # (AUTO) 7.5 K/uL (1.8-7.7); NEUTROPHILS % (AUTO) 85.6 % (40.0-77.0); PLATELET COUNT (AUTO) 195 K/uL (130-400); RED BLOOD CELL COUNT(AUTO) 2.39 MIL/uL (4.50-6.20); RED CELL DISTRIBUTION WIDTH 17.4 % (11.0-15.5); WHITE BLOOD COUNT (AUTO) 8.8 K/uL (4.8-10.8)
[2024-09-16 04:21] LABS: ALBUMIN 1.9 g/dL (3.5-5.0); BILIRUBIN,TOTAL 0.3 mg/dL (0.2-1.0); CREATININE 0.9 mg/dL (0.5-1.3); MAGNESIUM 1.6 mg/dL (1.80-2.40); POTASSIUM 4.5 mmol/L (3.5-5.1); TOTAL PROTEIN, SERUM 4.5 g/dL (6.0-8.3)
--- NOTE | 2024-09-16 07:57 | PN ---
PROGRESS NOTE PROBLEM LIST: -Intractable back pain secondary to multiple compression fractures (T3, T4, T7, L1, L2) -Recent mechanical fall -Acute blood loss anemia s/p PRBC transfusion -Suspected GI bleed (Positive fecal occult), pending EGD -Electrolyted derangement -Severe (M mmHg, P mmHg, TALHA: 0.6 cm2) by echo done 09/12/2024 -Alcohol abuse with concern for withdrawl -Low normal LV systolic function (LVEF: 50-55% by echo done 09/12/2024) -COPD -duodenal ulcer oozing via EGD INTERIM HISTORY OF PRESENT ILLNESS: Patient was seen and evaluated on September 15, 2024 note is being dictated today later. Patient had no complaints at that time hemoglobin has been stable and appropriate medications have been initiated and continued the [facility] Gastroenterology. 2D echocardiogram is again as described above. Telemetry has remained stable. REVIEW OF SYSTEMS: No fever, headache, chest pain, abdominal pain, nausea, vomiting, or diarrhea. VITAL SIGNS Vital Signs Date Time Temp Pulse Resp B/P (MAP) Pulse Ox O2 Delivery O2 Flow Rate FiO2 09/16/24 07:49 82 18 N/Cannula Low lpm 2.0 28 09/16/24 04:04 98.1 134/79 91 Laboratory Tests 09/16/24 03:38 LABS/MEDS Laboratory Tests Test 09/16/24 03:38 White Blood Count 8.8 K/uL (4.8-10.8) Red Blood Count 2.39 MIL/uL (4.50-6.20) L Hemoglobin 8.0 g/dL (14.0-18.0) L Hematocrit 24.1 % (42-54) L Mean Corpuscular Volume 100.8 fL (79-99) H Mean Corpuscular Hemoglobin 33.5 pg (27.0-33.0) H Mean Corpuscular Hemoglobin Concent 33.2 g/dL (32.0-36.0) Red Cell Distribution Width 17.4 % (11.0-15.5) H Platelet Count 195 K/uL (130-400) Mean Platelet Volume 9.6 fL (7.5-10.5) Immature Granulocyte % (Auto) 0.6 % (0-1) Neutrophils (%) (Auto) 85.6 % (40.0-77.0) H Lymphocytes (%) (Auto) 6.4 % (21.0-51.0) L Monocytes (%) (Auto) 7.3 % (3.0-13.0) Eosinophils (%) (Auto) 0.0 % (0.0-8.0) Basophils (%) (Auto) 0.1 % (0.0-5.0) Neutrophils # (Auto) 7.5 K/uL (1.8-7.7) Lymphocytes # (Auto) 0.6 K/uL (1.0-4.8) L Monocytes # (Auto) 0.6 K/uL (0.1-1.0) Eosinophils # (Auto) 0.00 K/uL (0.00-0.70) Basophils # (Auto) 0.01 K/uL (0.00-0.20) Absolute Immature Granulocyte (auto 0.05 K/uL (0-1) Nucleated Red Blood Cells 0.0 % (0.0-0.19) Sodium Level 133 mmol/L (136-145) L Potassium Level 4.5 mmol/L (3.5-5.1) Chloride Level 100 mmol/L (101-111) L Carbon Dioxide Level 33 mmol/L (21-32) H Blood Urea Nitrogen 18 mg/dL (7-18) Creatinine 0.9 mg/dL (0.5-1.3) Glomerular Filtration Rate Calc 95 mL/min (>90) Random Glucose 151 mg/dL (70-105) H Total Calcium 8.0 mg/dL (8.5-10.1) L Magnesium Level 1.60 mg/dL (1.80-2.40) L Total Bilirubin 0.3 mg/dL (0.2-1.0) Aspartate Amino Transf (AST/SGOT) 19 U/L (10-37) Alanine Aminotransferase (ALT/SGPT) 17 U/L (12-78) Alkaline Phosphatase 63 U/L (50-136) Total Protein 4.5 g/dL (6.0-8.3) L Albumin 1.9 g/dL (3.5-5.0) L Current Medications Hydromorphone HCl 0.5 mg ONCE ONCE IVP Last administered on 09/11/24at 23:16; Start 09/11/24 at 23:00; Stop 09/11/24 at 23:05; Status DC Sodium Chloride 1,000 ml @ 0 mls/hr ONCE ONCE IV Last administered on 09/11/24at 23:15; Start 09/11/24 at 23:00; Stop 09/11/24 at 23:05; Status DC Albuterol 1 UDVIAL ONCE ONCE IH; Start 09/11/24 at 23:30; Stop 09/11/24 at 23:31; Status DC Pantoprazole Sodium 80 mg ONCE ONCE IVP Last administered on 09/12/24at 01:36; Start 09/11/24 at 23:30; Stop 09/11/24 at 23:31; Status DC Acetaminophen 650 mg Q6H PRN PO; Start 09/12/24 at 01:30; Stop 10/12/24 at 01:29 Ondansetron HCl 4 mg Q6H PRN IV Last administered on 09/14/24at 19:58; Start 09/12/24 at 01:30; Stop 10/12/24 at 01:29 Sodium Chloride 1,000 ml @ 75 mls/hr [id number] IV Last administered on 09/15/24at 23:45; Start 09/12/24 at 01:30; Stop 10/12/24 at 01:29 Octreotide Acetate 50 mcg ONCE ONCE IV Last administered on 09/12/24at 05:08; Start 09/12/24 at 04:00; Stop 09/12/24 at 04:01; Status DC Octreotide Acetate 1,000 mcg ONCE IV; Start 09/12/24 at 04:00; Stop 09/12/24 at 03:58; Status DC Pantoprazole Sodium 80 mg/ Sodium Chloride 100 ml @ 10 mls/hr Q10H IVP Last administered on 09/15/24at 00:25; Start 09/12/24 at 04:00; Stop 09/15/24 at 08:59; Status DC Octreotide Acetate 1250 mcg/ Sodium Chloride 250 ml @ 0 mls/hr PROTOCOL IV Last administered on 09/13/24at 23:02; Start 09/12/24 at 04:00; Stop 09/15/24 at 08:59; Status DC Magnesium Sulfate 50 ml @ 0 mls/hr PROTOCOL PRN IV Last administered on 09/16/24at 06:26; Start 09/12/24 at 08:00; Stop 10/12/24 at 07:59 Acetaminophen/ Hydrocodone Bitart 1 tab Q6H PRN PO; Start 09/12/24 at 09:00; Stop 09/12/24 at 09:59; Status DC Acetaminophen/ Hydrocodone Bitart 1 tab Q6H PRN PO; Start 09/12/24 at 09:00; Stop 09/12/24 at 09:59; Status DC Hydromorphone HCl 0.5 mg Q4H PRN IVP; Start 09/12/24 at 09:00; Stop 09/17/24 at 08:59 Ceftriaxone Sodium 2 gm Q24H IVPB Last administered on 09/15/24at 08:52; Start 09/12/24 at 09:00; Stop 09/22/24 at 08:59 Chlordiazepoxide HCl 25 mg Q2H PRN PO; Start 09/12/24 at 09:00; Stop 09/19/24 at 08:59 Lorazepam 2 mg Q4H PRN IVP; Start 09/12/24 at 09:00; Stop 09/19/24 at 08:59 Thiamine HCl 100 mg/Folic Acid 1 mg/Multivitamins/ Minerals 10 ml/ Sodium Chloride 1,011.2 ml @ 100 mls/ hr Q24H IV Last administered on 09/12/24at 17:12; Start 09/12/24 at 09:00; Stop 09/13/24 at 06:16; Status DC Pharmacy Profile Note 1 each PROTOCOL PRN MISC; Start 09/12/24 at 09:00; Stop 09/19/24 at 08:59 Morphine Sulfate 2 mg Q4H PRN IVP Last administered on 09/16/24at 06:52; Start 09/12/24 at 09:30; Stop 09/19/24 at 09:29 Azithromycin 125 ml @ 125 mls/hr ONCE ONCE IVPB Last administered on 09/12/24at 10:44; Start 09/12/24 at 10:30; Stop 09/12/24 at 11:29; Status DC Lactulose 20 gm Q2H PO Last administered on 09/12/24at 17:11; Start 09/12/24 at 15:00; Stop 09/12/24 at 18:00; Status DC Polyethylene Glycol 17 gm DAILY PO Last administered on 09/13/24at 08:10; Start 09/13/24 at 09:00; Stop 10/13/24 at 08:59 Gadoterate Meglumine 10 mmol STK-MED ONCE IV; Start 09/12/24 at 16:27; Stop 09/12/24 at 16:28; Status DC Thiamine HCl 100 mg/Folic Acid 1 mg/Multivitamins/ Minerals 10 ml/ Sodium Chloride 1,011.2 ml @ 100 mls/ hr Q10H IV Last administered on 09/13/24at 06:49; Start 09/13/24 at 06:30; Stop 09/13/24 at 12:32; Status DC Thiamine HCl 100 mg/Folic Acid 1 mg/Multivitamins/ Minerals 10 ml/ Sodium Chloride 1,011.2 ml @ 100 mls/ hr Q24H IV Last administered on 09/14/24at 09:33; Start 09/14/24 at 06:30; Stop 09/14/24 at 16:37; Status DC Bacitracin 1 each BID TP Last administered on 09/15/24at 19:58; Start 09/13/24 at 21:00; Stop 09/27/24 at 20:59 Propofol 200 mg STK-MED ONCE IV; Start 09/14/24 at 14:03; Stop 09/14/24 at 14:08; Status DC Lidocaine HCl 100 mg STK-MED ONCE .ROUTE; Start 09/14/24 at 14:03; Stop 09/14/24 at 14:08; Status DC Ipratropium [place] 0.5 MG ONCE ONCE IH Last administered on 09/14/24at 15:08; Start 09/14/24 at 15:00; Stop 09/14/24 at 15:04; Status DC Dexamethasone 4 mg Q12H9 PO Last administered on 09/15/24at 19:58; Start 09/14/24 at 21:00; Stop 10/14/24 at 20:59 Pantoprazole Sodium 40 mg BID PO Last administered on 09/15/24at 19:58; Start 09/15/24 at 09:00; Stop 10/15/24 at 08:59 Sucralfate 1 gm Q6H PO Last administered on 09/16/24at 03:25; Start 09/14/24 at 20:30; Stop 10/14/24 at 20:29 Pharmacy Profile Note 1 each ONCE MISC; Start 09/14/24 at 16:00; Stop 09/14/24 at 15:57; Status DC Ipratropium [place] 0.5 MG [id number] IH Last administered on 09/16/24at 07:47; Start 09/15/24 at 00:00; Stop 10/15/24 at 00:00 PHYSICAL EXAMINATION: GENERAL: No acute distress. HEENT: Normocephalic, atraumatic. CARDIAC: Positive S1 and S2. Murmurs unchanged LUNGS: Clear to auscultation bilaterally. ABDOMEN: Bowel sounds present, soft, nontender. EXTREMITIES: No edema bilaterally. NEUROLOGIC: Cranial nerves 2-12 grossly intact. PSYCHIATRIC: Calm. TELEMETRY: Sinus ASSESSMENT: Duodenal ulcer as source of anemia and gastrointestinal bleeding Severe aortic stenosis noted on 2D echocardiography symptomatic PLAN: At this time remaining cardiac workup with done as an outpatient. Patient should come to see me in the clinic in 2-4 weeks after dismissal. Goal would be to repeat 2D echocardiogram in the setting of a normal he below hemoglobin level. Please do not hesitate to call with any questions cardiac-post we will sign off thank you KAREN MARIE MD Sep 16, 2024 07:57
[2024-09-16] MEDS ORDERED: MAGNESIUM 2GM PREMIX 50ML 50 ML IV SCH (09:30)
--- NOTE | 2024-09-16 13:13 | NUR ---
PRIMARY MD STATES THAT PATIENT IS RELUCTANT TO DISCHARGE, STATES PAIN TOO GREAT AND HE HAS NO ONE TO HELP HIM AT HOME. PATIENT IS UNABLE TO BE SENT TO A REHAB BC HE IS NON FUNDED. WILL FOLLOW UP WITH [facility] FOR SAFE DISCHARGE. OTHER NOTES STATES HE WAS TRYING TO RELOCATE TO HIS DAUGHTER IN [facility]. WILL CONFIRM THAT IS THE PLAN
--- NOTE | 2024-09-16 14:26 | PN ---
[facility] PROGRESS NOTE Date of Service: Sep 16, 2024 Time of Service: 14:24 SUBJECTIVE: 09/13 patient seen at bedside, no acute events overnight. GI recommending EGD and colonoscopy, we will follow up postprocedure. He was transfused with 2 units packed red blood cell, hemoglobin now at 9.5, remainder of his labs are relatively unremarkable. MRI of thoracic spine showing subacute compression fracture involving T8 with 50% loss of height, no evidence of metastatic disease. Echo showing normal EF of 50-55% with severe valvular aortic stenosis, peak aortic valve gradient of 86 mm Hg, per Cardiology patient may need surgical intervention to address aortic valve 09/14 patient seen at bedside, no acute events overnight. EGD pending later today, we will follow up postprocedure. He has been afebrile, hemodynamically stable saturating well on 2 L nasal cannula. Hemoglobin decreased from 9.5 down to 9.1, remainder of his labs are relatively unremarkable. 09/15 patient is seen and examined at bedside, no acute events overnight, case discussed with the RN, patient alert and oriented x3, following commands, BP 115/70, afebrile, saturating 98% on 2 L nasal cannula. Hemoglobin today 9.7, stable, hematocrit 29.2. Magnesium 1.5. EGD done 09/14 findings of 4 duodenal ulcers s/p clipping x 1. 09/16 patient is seen and examined at bedside, no acute events overnight, patient downgraded to the PCU, hemodynamically stable, afebrile, saturating normal on room air. Denies back pain, no urinary or bowel incontinence or retention. Results of cervical, thoracic and lumbar spine MRI reviewed, discussed with the patient. Mild drop in hemoglobin today at 80.0, we will follow CBC in a.m. and transfuse as needed. We will downgraded to the medical floor. We will give magnesium sulfate 2 g IV x1 REVIEW OF SYSTEMS 12 point review of systems negative unless noted in HPI PHYSICAL EXAM GENERAL APPEARANCE: The patient is awake, alert, and oriented, in no acute cardiopulmonary distress. NEUROLOGICAL: Cranial nerves II-XII grossly intact. Motor is 5/5 in bilateral upper and lower extremities proximal to distal. No sensory deficits. HEENT: Face is symmetric. Pupils are equal and reactive. Extraocular movements are intact. NECK: Supple. No JVD. No thyromegaly. No submental, submandibular, pre- /postauricular, occipital or supraclavicular lymphadenopathy. CHEST: Normal chest expansion. No Telemetry. LUNGS: Absence of any rales, rhonchi or any wheezing. CARDIOVASCULAR: Regular. S1 and S2 normal. No appreciable rubs, murmurs or gallops. ABDOMEN: Soft, nontender, and nondistended. There is no rebound, voluntary guarding, or rigidity. : Deferred. No Martinez. EXTREMITIES: Non-edematous and not cyanotic. No clubbing. Good capillary refill. SKIN: No skin breakdown. Vital Signs (last 8hr) Date Time Temp Pulse Resp B/P (MAP) Pulse Ox O2 Delivery O2 Flow Rate FiO2 09/16/24 12:00 97.9 73 20 115/76 96 Nasal Cannula 2.0 09/16/24 11:22 76 18 09/16/24 11:21 76 18 N/Cannula Low lpm 2.0 28 09/16/24 08:00 92 Nasal Cannula* 2 28 09/16/24 07:52 97.5 85 20 133/83 98 Nasal Cannula 2.0 09/16/24 07:49 82 18 09/16/24 07:49 82 18 N/Cannula Low lpm 2.0 28 LABS: Laboratory: Test 09/16/24 03:38 09/15/24 04:05 Range/Units White Blood Count 8.8 4.8-10.8 K/uL Red Blood Count 2.39 L 4.50-6.20 MIL/uL Hemoglobin 8.0 L 14.0-18.0 g/dL Hematocrit 24.1 L 42-54 % Mean Corpuscular Volume 100.8 H 79-99 fL Mean Corpuscular Hemoglobin 33.5 H 27.0-33.0 pg Mean Corpuscular Hemoglobin Concent 33.2 32.0-36.0 g/dL Red Cell Distribution Width 17.4 H 11.0-15.5 % Platelet Count 195 130-400 K/uL Mean Platelet Volume 9.6 7.5-10.5 fL Immature Granulocyte % (Auto) 0.6 0-1 % Neutrophils (%) (Auto) 85.6 H 40.0-77.0 % Lymphocytes (%) (Auto) 6.4 L 21.0-51.0 % Monocytes (%) (Auto) 7.3 3.0-13.0 % Eosinophils (%) (Auto) 0.0 0.0-8.0 % Basophils (%) (Auto) 0.1 0.0-5.0 % Neutrophils # (Auto) 7.5 1.8-7.7 K/uL Lymphocytes # (Auto) 0.6 L 1.0-4.8 K/uL Monocytes # (Auto) 0.6 0.1-1.0 K/uL Eosinophils # (Auto) 0.00 0.00-0.70 K/uL Basophils # (Auto) 0.01 0.00-0.20 K/uL Absolute Immature Granulocyte (auto 0.05 0-1 K/uL Nucleated Red Blood Cells 0.0 0.0-0.19 % Sodium Level 133 L 136-145 mmol/L Potassium Level 4.5 3.5-5.1 mmol/L Chloride Level 100 L 101-111 mmol/L Carbon Dioxide Level 33 H 21-32 mmol/L Blood Urea Nitrogen 18 7-18 mg/dL Creatinine 0.9 0.5-1.3 mg/dL Glomerular Filtration Rate Calc 95 >90 mL/min Random Glucose 151 H 70-105 mg/dL Total Calcium 8.0 L 8.5-10.1 mg/dL Magnesium Level 1.60 L 1.80-2.40 mg/dL Total Bilirubin 0.3 0.2-1.0 mg/dL Aspartate Amino Transf (AST/SGOT) 19 10-37 U/L Alanine Aminotransferase (ALT/SGPT) 17 12-78 U/L Alkaline Phosphatase 63 50-136 U/L Total Protein 4.5 L 6.0-8.3 g/dL Albumin 1.9 L 3.5-5.0 g/dL White Cell Morphology Comment See comments Current Medications Medications (Trade) Dose Ordered Sig/Samina Route PRN Reason Start Time Stop Time Status Last Admin Dose Admin Acetaminophen (TYLenol 325MG TAB) 650 mg Q6H PRN PO TEMPERATURE GREATER THAN 101.5 09/12/24 01:30 10/12/24 01:29 Acetaminophen/ Hydrocodone Bitart (NORco 10) 1 tab Q6H PRN PO SEVERE PAIN (7-10) 09/12/24 09:00 09/12/24 09:59 DC Acetaminophen/ Hydrocodone Bitart (NORco 5/325MG) 1 tab Q6H PRN PO MODERATE PAIN (4-6) 09/12/24 09:00 09/12/24 09:59 DC Bacitracin (Bacitracin) 1 each BID TP 09/13/24 21:00 09/27/24 20:59 09/16/24 08:19 1 EACH Ceftriaxone Sodium (Rocephin 2gm Inj) 2 gm Q24H IVPB 09/12/24 09:00 09/22/24 08:59 09/16/24 08:19 2 GM Chlordiazepoxide HCl (LIBrium 25 MG CAP) 25 mg Q2H PRN PO ALCOHOL WITHDRAWAL PROTOCOL 09/12/24 09:00 09/19/24 08:59 Dexamethasone (DeCADron 4 mg TAB) 4 mg Q12H9 PO 09/14/24 21:00 10/14/24 20:59 09/16/24 08:19 4 MG Hydromorphone HCl (DiLAUDid 0.5MG INJ) 0.5 mg Q4H PRN IVP BREAKTHROUGH PAIN ONLY 09/12/24 09:00 09/17/24 08:59 Ipratropium Cornish (AtrovENT UD) 0.5 MG [id number] IH 09/15/24 00:00 10/15/24 00:00 09/16/24 11:20 0.5 MG Lactulose (Constulose 20gm/ 30ml Udcup) 20 gm BID PRN PO CONSTIPATION 09/16/24 13:30 10/16/24 13:29 Lactulose (Constulose 20gm/ 30ml Udcup) 20 gm Q2H PO 09/12/24 15:00 09/12/24 18:00 DC 09/12/24 17:11 20 GM Lorazepam (AtiVAN) 2 mg Q4H PRN IVP ALCOHOL WITHDRAWAL PROTOCOL 09/12/24 09:00 09/19/24 08:59 Magnesium Sulfate 50 ml @ 0 mls/hr PROTOCOL IV 09/16/24 09:30 09/16/24 09:10 DC Magnesium Sulfate 50 ml @ 0 mls/hr PROTOCOL PRN IV MAGNESIUM PROTOCOL 09/12/24 08:00 10/12/24 07:59 09/16/24 06:26 25 MLS/HR Morphine Sulfate (morPHINE 2MG SYG) 2 mg Q4H PRN IVP SEVERE PAIN (7-10) 09/12/24 09:30 09/19/24 09:29 09/16/24 06:52 2 MG Octreotide Acetate 1250 mcg/ Sodium Chloride 250 ml @ 0 mls/hr PROTOCOL IV 09/12/24 04:00 09/15/24 08:59 DC 09/13/24 23:02 5 MLS/HR Octreotide Acetate (SandoSTATIN) 1,000 mcg ONCE IV 09/12/24 04:00 09/12/24 03:58 DC Ondansetron HCl (zoFRAN 4MG INJ) 4 mg Q6H PRN IV NAUSEA/VOMITING 09/12/24 01:30 10/12/24 01:29 09/14/24 19:58 4 MG Pantoprazole Sodium (PROTonix 40MG TAB) 40 mg BID PO 09/15/24 09:00 10/15/24 08:59 09/16/24 08:19 40 MG Pantoprazole Sodium 80 mg/ Sodium Chloride 100 ml @ 10 mls/hr Q10H IVP 09/12/24 04:00 09/15/24 08:59 DC 09/15/24 00:25 10 MLS/HR Pharmacy Profile Note (Pharmacy Communication) 1 each ONCE MISC 09/14/24 16:00 09/14/24 15:57 DC Pharmacy Profile Note (Pharmacy Communication) 1 each PROTOCOL PRN MISC ETOH Withdrawal Score changes 09/12/24 09:00 09/19/24 08:59 Polyethylene Glycol (MIRalax 3350 17 GM POWD.PACK) 17 gm DAILY PO 09/13/24 09:00 10/13/24 08:59 09/16/24 08:19 17 GM Sodium Chloride 1,000 ml @ 75 mls/hr [id number] IV 09/12/24 01:30 09/16/24 13:23 DC 09/15/24 23:45 75 MLS/HR Sucralfate (Carafate) 1 gm Q6H PO 09/14/24 20:30 10/14/24 20:29 09/16/24 08:24 1 GM Thiamine HCl 100 mg/Folic Acid 1 mg/Multivitamins/ Minerals 10 ml/ Sodium Chloride 1,011.2 ml @ 100 mls/ hr Q10H IV 09/13/24 06:30 09/13/24 12:32 DC 09/13/24 06:49 100 MLS/HR Thiamine HCl 100 mg/Folic Acid 1 mg/Multivitamins/ Minerals 10 ml/ Sodium Chloride 1,011.2 ml @ 100 mls/ hr Q24H IV 09/12/24 09:00 09/13/24 06:16 DC 09/12/24 17:12 100 MLS/HR Thiamine HCl 100 mg/Folic Acid 1 mg/Multivitamins/ Minerals 10 ml/ Sodium Chloride 1,011.2 ml @ 100 mls/ hr Q24H IV 09/14/24 06:30 09/14/24 16:37 DC 09/14/24 09:33 100 MLS/HR DIAGNOSTICS / RADIOLOGY: [ ] ASSESSMENT: Acute GI bleed, POA Hypotension, POA Macrocytic hyperchromic anemia, POA Mild hyponatremia, POA Multiple compression fractures, T3, T4, T7, L1, L2, POA Nephrolithiasis, POA, 7.3 mm stone in the right renal pelvis, by CT on Severe aortic stenosis on Echo (09/13/24) Hyponatremia Hx of alcohol abuse Tobacco use disorder PLAN: - downgraded to medical floor - continue to follow GI input and recommendation -continue Protonix 40 mg p.o. b.i.d. -continue Carafate 1 g p.o. q.6 hours -continue to monitor for signs of withdrawal - Continue PRN pain control - Trend Hgb, transfuse if < 7.0 - Continue CIWA protocol - Cardiology consulted, appreciate recommendations -we will discuss findings on spine MRI with Neurosurgery. - GI consulted, appreciate recommendations Total time spent 30 minutes. ROXIE HARPER MD Sep 16, 2024 14:26
--- NOTE | 2024-09-16 15:00 | NUR ---
DISCHARGE PLANNING WITH DTR. SPOKE AT LENGTH TO DAUGHTER. STAETS SHE WAS TRYING TO GET PATIENT TO COME LIVE WITH HER, AND WILL NOW DO SO AT DISCHARGE. CAN COME SUNDAY TO PICK HIM UP TAKE BACK TO [facility]. DISCUSSED HIS FINANCES/ CHALLENGES ETC. DISCUSSED THAT WE CANNOT GET HIM [facility], NOT POSSIBLE. ADVISED THAT WE WERE GOING TO TRY TO GET HIM A BRACE AT A LOW COST, WAS DISCUSSING THAT WITH DR. HARPER.
[2024-09-16] MEDS: LACTULOSE 20 GM/30 ML UDCUP PO PRN (15:07)
--- NOTE | 2024-09-16 15:15 | NUR ---
Order received and patient seen. Patient reports he is independent with all ADL's prior to fall. As per nurse, patient with low back injury. Patient was able to tolerate sitting and standing with minimal assistance. Utilized 2WW for support. Patient was able to shift weight side to side however reported increase in low back with prolonged standing (/10). Patient was returned to bed. Instructed on log roll technique to minimize pain exacerbation. Patient may benefit from neurology consult as well as back brace for support. Addendum: 09/16/24 at 1638 by BENITEZ ORTEZ PT Amended: Links added.
[2024-09-16] MEDS: THIAMINE HCL 100 MG TABLET PO SCH (20:27)
[2024-09-16] MEDS: LIDOCAINE 5% TOPICAL PATCH TP SCH (20:27)
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
[2024-09-17] VITALS (13 sets, daily range): BP systolic 109–137; BP diastolic 60–88; PULSE 78–106; RESP 17–20; TEMP 97.5–98.4; O2SAT 89–98
[2024-09-17 06:08] LABS: HEMATOCRIT 24.2 % (42-54); MEAN CORPUSCULAR HEMOGLOBIN 34.4 pg (27.0-33.0); MEAN CORPUSCULAR HGB CONC 34.3 g/dL (32.0-36.0); MEAN CORPUSCULAR VOLUME 100.4 fL (79-99); RED BLOOD CELL COUNT(AUTO) 2.41 MIL/uL (4.50-6.20); WHITE BLOOD COUNT (AUTO) 7.9 K/uL (4.8-10.8)
[2024-09-17 06:33] LABS: ALBUMIN 1.9 g/dL (3.5-5.0); BILIRUBIN,TOTAL 0.2 mg/dL (0.2-1.0); CREATININE 0.9 mg/dL (0.5-1.3); MAGNESIUM 1.9 mg/dL (1.80-2.40); POTASSIUM 3.8 mmol/L (3.5-5.1); TOTAL PROTEIN, SERUM 4.5 g/dL (6.0-8.3)
[2024-09-17] MEDS: FOLic ACID 1 MG TABLET PO SCH (08:43)
--- NOTE | 2024-09-17 08:57 | NUR ---
DISCHARGE PLANNING DISCUSSED PATIENT W DR. HARPER. NO FAMILY FOR RIDE UNTIL SUNDAY. ABDOMINAL BINDER HELPED SLIGHTLY, DOES NEED BRACE. REACHED OUT TO DR. GRIMALDO FOR SUGGESTIONS RE BRACE TYPE. AWAITING CALL BACK. PLAN IS TO BE REFERRED TO DR. GRIMALDO OUTPATIENT.WILL UP DATE CHART NOTES WHEN MORE INFO AVAILABLE
--- NOTE | 2024-09-17 13:00 | NUR ---
DISCUSSED PT/ PLANNING WITH DR. PRINGLE. FOR PAIN RELIEF AND SAFETY HE RECOMMENDED [facility] BRACE. PATIENT WILL FOLLOW UP WITH DR. GRIMALDO OUTPATIENT IF HE STAYS IN [place], IF NOT WILL NEED TO SEEK OUT NEUROSURGEON IN [facility], WHERE HE PLANS TO MOVE ADVISED DR. HARPER, GOT OK TO ORDER BRACE.
--- NOTE | 2024-09-17 13:59 | NUR ---
Notes: Met with pt. Pt reports good appetite, 50% PO intake, NKFA, No N/V, no difficulties swallowing and UBW 195 lbs. Question weight accuracy 9 kg gain since admin. Pt agreeable to ensure HP due to 50%PO intake. Daughter on the phone during visit, aware of protein supplement. Preformed NFPE during visit. Observed very little space between folds in the triceps, slight depression interosseous muscle, and mild depression in the quadriceps muscle thin visually assessed severe muscle/fat loss. Recommendations: Continue Heart Healthy Diet + Soft/[place] Provide Ensure HP per 50% PO intake Continue Vit B1 as needed Continue Folic Acid as need Oder Vit D, b12 to rule out deficiency Provide vit. C 500 mg BID per smoking hx Order b6 labs per hx of alcohol consumption Monitor BM IF BM >3 day consider stool softener Monitor weight, Reweigh as possible Monitor electrolytes, Replenish electrolytes as protocol Monitor goals of care RD to follow + available for consult per protocol Dietetic Student, Alisa Fallon Addendum: 09/17/24 at [address] Amended: Links added.
[2024-09-17] MEDS: acetaMINOPHEN 325 MG TAB PO PRN (14:27)
--- NOTE | 2024-09-17 15:48 | NUR ---
PAIN REASSESSMENT/INTERVENTION Patient reports pain at 7/10 from previously issued medication. Repositioned for comfort. Patient verbalized and demonstrated movements that relieve pain. Additional pillow provided for comfort.
--- NOTE | 2024-09-17 16:50 | PN ---
[facility] PROGRESS NOTE Date of Service: Sep 17, 2024 Time of Service: 16:49 SUBJECTIVE: 09/13 patient seen at bedside, no acute events overnight. GI recommending EGD and colonoscopy, we will follow up postprocedure. He was transfused with 2 units packed red blood cell, hemoglobin now at 9.5, remainder of his labs are relatively unremarkable. MRI of thoracic spine showing subacute compression fracture involving T8 with 50% loss of height, no evidence of metastatic disease. Echo showing normal EF of 50-55% with severe valvular aortic stenosis, peak aortic valve gradient of 86 mm Hg, per Cardiology patient may need surgical intervention to address aortic valve 09/14 patient seen at bedside, no acute events overnight. EGD pending later today, we will follow up postprocedure. He has been afebrile, hemodynamically stable saturating well on 2 L nasal cannula. Hemoglobin decreased from 9.5 down to 9.1, remainder of his labs are relatively unremarkable. 09/15 patient is seen and examined at bedside, no acute events overnight, case discussed with the RN, patient alert and oriented x3, following commands, BP 115/70, afebrile, saturating 98% on 2 L nasal cannula. Hemoglobin today 9.7, stable, hematocrit 29.2. Magnesium 1.5. EGD done 09/14 findings of 4 duodenal ulcers s/p clipping x 1. 09/16 patient is seen and examined at bedside, no acute events overnight, patient downgraded to the PCU, hemodynamically stable, afebrile, saturating normal on room air. Denies back pain, no urinary or bowel incontinence or retention. Results of cervical, thoracic and lumbar spine MRI reviewed, discussed with the patient. Mild drop in hemoglobin today at 80.0, we will follow CBC in a.m. and transfuse as needed. We will downgraded to the medical floor. We will give magnesium sulfate 2 g IV x1 09/17 patient is seen and examined at bedside, case discussed with the RN, no acute events overnight, patient comfortably in bed, BP 125/60, afebrile, saturating normal on room air. Per discussion with case management, Neurosurgery contacted, recommended brace, case management to make arrangements. Pending daughter to come to the hospital on Sunday to take the patient back to [place]. REVIEW OF SYSTEMS 12 point review of systems negative unless noted in HPI PHYSICAL EXAM GENERAL APPEARANCE: The patient is awake, alert, and oriented, in no acute cardiopulmonary distress. NEUROLOGICAL: Cranial nerves II-XII grossly intact. Motor is 5/5 in bilateral upper and lower extremities proximal to distal. No sensory deficits. HEENT: Face is symmetric. Pupils are equal and reactive. Extraocular movements are intact. NECK: Supple. No JVD. No thyromegaly. No submental, submandibular, pre- /postauricular, occipital or supraclavicular lymphadenopathy. CHEST: Normal chest expansion. No Telemetry. LUNGS: Absence of any rales, rhonchi or any wheezing. CARDIOVASCULAR: Regular. S1 and S2 normal. No appreciable rubs, murmurs or gallops. ABDOMEN: Soft, nontender, and nondistended. There is no rebound, voluntary guarding, or rigidity. : Deferred. No Martinez. EXTREMITIES: Non-edematous and not cyanotic. No clubbing. Good capillary refill. SKIN: No skin breakdown. Vital Signs (last 8hr) Date Time Temp Pulse Resp B/P (MAP) Pulse Ox O2 Delivery O2 Flow Rate FiO2 09/17/24 16:00 97.9 98 18 125/60 98 Nasal Cannula 2.0 09/17/24 11:32 98.1 106 18 109/65 89 Nasal Cannula 2.0 09/17/24 11:12 95 18 LABS: Laboratory: Test 09/17/24 04:41 09/16/24 03:38 Range/Units White Blood Count 7.9 4.8-10.8 K/uL Red Blood Count 2.41 L 4.50-6.20 MIL/uL Hemoglobin 8.3 L 14.0-18.0 g/dL Hematocrit 24.2 L 42-54 % Mean Corpuscular Volume 100.4 H 79-99 fL Mean Corpuscular Hemoglobin 34.4 H 27.0-33.0 pg Mean Corpuscular Hemoglobin Concent 34.3 32.0-36.0 g/dL Red Cell Distribution Width 18.0 H 11.0-15.5 % Platelet Count 213 130-400 K/uL Mean Platelet Volume 9.7 7.5-10.5 fL Nucleated Red Blood Cells 0.0 0.0-0.19 % Sodium Level 137 136-145 mmol/L Potassium Level 3.8 3.5-5.1 mmol/L Chloride Level 103 101-111 mmol/L Carbon Dioxide Level 29 21-32 mmol/L Blood Urea Nitrogen 18 7-18 mg/dL Creatinine 0.9 0.5-1.3 mg/dL Glomerular Filtration Rate Calc 95 >90 mL/min Random Glucose 139 H 70-105 mg/dL Total Calcium 7.9 L 8.5-10.1 mg/dL Magnesium Level 1.90 1.80-2.40 mg/dL Total Bilirubin 0.2 0.2-1.0 mg/dL Aspartate Amino Transf (AST/SGOT) 17 10-37 U/L Alanine Aminotransferase (ALT/SGPT) 17 12-78 U/L Alkaline Phosphatase 60 50-136 U/L Total Protein 4.5 L 6.0-8.3 g/dL Albumin 1.9 L 3.5-5.0 g/dL Immature Granulocyte % (Auto) 0.6 0-1 % Neutrophils (%) (Auto) 85.6 H 40.0-77.0 % Lymphocytes (%) (Auto) 6.4 L 21.0-51.0 % Monocytes (%) (Auto) 7.3 3.0-13.0 % Eosinophils (%) (Auto) 0.0 0.0-8.0 % Basophils (%) (Auto) 0.1 0.0-5.0 % Neutrophils # (Auto) 7.5 1.8-7.7 K/uL Lymphocytes # (Auto) 0.6 L 1.0-4.8 K/uL Monocytes # (Auto) 0.6 0.1-1.0 K/uL Eosinophils # (Auto) 0.00 0.00-0.70 K/uL Basophils # (Auto) 0.01 0.00-0.20 K/uL Absolute Immature Granulocyte (auto 0.05 0-1 K/uL Current Medications Medications (Trade) Dose Ordered Sig/Samian Route PRN Reason Start Time Stop Time Status Last Admin Dose Admin Acetaminophen (TYLenol 325MG TAB) 650 mg Q6H PRN PO TEMPERATURE GREATER THAN 101.5 09/12/24 01:30 10/12/24 01:29 09/17/24 14:27 650 MG Acetaminophen/ Hydrocodone Bitart (NORco 10) 1 tab Q6H PRN PO SEVERE PAIN (7-10) 09/12/24 09:00 09/12/24 09:59 DC Acetaminophen/ Hydrocodone Bitart (NORco 5/325MG) 1 tab Q6H PRN PO MODERATE PAIN (4-6) 09/12/24 09:00 09/12/24 09:59 DC Bacitracin (Bacitracin) 1 each BID TP 09/13/24 21:00 09/27/24 20:59 09/17/24 08:43 1 EACH Ceftriaxone Sodium (Rocephin 2gm Inj) 2 gm Q24H IVPB 09/12/24 09:00 09/22/24 08:59 09/17/24 08:43 2 GM Chlordiazepoxide HCl (LIBrium 25 MG CAP) 25 mg Q2H PRN PO ALCOHOL WITHDRAWAL PROTOCOL 09/12/24 09:00 09/19/24 08:59 Dexamethasone (DeCADron 4 mg TAB) 4 mg Q12H9 PO 09/14/24 21:00 10/14/24 20:59 09/17/24 08:43 4 MG Folic Acid (FOLic ACID 1 MG TABLET) 1 mg DAILY PO 09/17/24 09:00 10/17/24 08:59 09/17/24 08:43 1 MG Hydromorphone HCl (DiLAUDid 0.5MG INJ) 0.5 mg Q4H PRN IVP BREAKTHROUGH PAIN ONLY 09/12/24 09:00 09/17/24 08:59 DC Ipratropium [place] (AtrovENT UD) 0.5 MG [id number] IH 09/15/24 00:00 10/15/24 00:00 09/17/24 11:12 0.5 MG Lactulose (Constulose 20gm/ 30ml Udcup) 20 gm BID PRN PO CONSTIPATION 09/16/24 13:30 10/16/24 13:29 09/17/24 10:30 20 GM Lactulose (Constulose 20gm/ 30ml Udcup) 20 gm Q2H PO 09/12/24 15:00 09/12/24 18:00 DC 09/12/24 17:11 20 GM Lidocaine (Lidoderm Patch 5%) 1 patch HS TP 09/16/24 21:00 10/16/24 20:59 09/16/24 20:27 1 PATCH Lorazepam (AtiVAN) 2 mg Q4H PRN IVP ALCOHOL WITHDRAWAL PROTOCOL 09/12/24 09:00 09/19/24 08:59 Magnesium Sulfate 50 ml @ 0 mls/hr PROTOCOL IV 09/16/24 09:30 09/16/24 09:10 DC Magnesium Sulfate 50 ml @ 0 mls/hr PROTOCOL PRN IV MAGNESIUM PROTOCOL 09/12/24 08:00 10/12/24 07:59 09/16/24 06:26 25 MLS/HR Morphine Sulfate (morPHINE 2MG SYG) 2 mg Q4H PRN IVP SEVERE PAIN (7-10) 09/12/24 09:30 09/17/24 12:29 DC 09/17/24 05:27 2 MG Octreotide Acetate 1250 mcg/ Sodium Chloride 250 ml @ 0 mls/hr PROTOCOL IV 09/12/24 04:00 09/15/24 08:59 DC 09/13/24 23:02 5 MLS/HR Octreotide Acetate (SandoSTATIN) 1,000 mcg ONCE IV 09/12/24 04:00 09/12/24 03:58 DC Ondansetron HCl (zoFRAN 4MG INJ) 4 mg Q6H PRN IV NAUSEA/VOMITING 09/12/24 01:30 10/12/24 01:29 09/14/24 19:58 4 MG Pantoprazole Sodium (PROTonix 40MG TAB) 40 mg BID PO 09/15/24 09:00 10/15/24 08:59 09/17/24 08:43 40 MG Pantoprazole Sodium 80 mg/ Sodium Chloride 100 ml @ 10 mls/hr Q10H IVP 09/12/24 04:00 09/15/24 08:59 DC 09/15/24 00:25 10 MLS/HR Pharmacy Profile Note (Pharmacy Communication) 1 each ONCE MISC 09/14/24 16:00 09/14/24 15:57 DC Pharmacy Profile Note (Pharmacy Communication) 1 each PROTOCOL PRN MISC ETOH Withdrawal Score changes 09/12/24 09:00 09/19/24 08:59 Polyethylene Glycol (MIRalax 3350 17 GM POWD.PACK) 17 gm DAILY PO 09/13/24 09:00 10/13/24 08:59 09/17/24 08:44 17 GM Sodium Chloride 1,000 ml @ 75 mls/hr [id number] IV 09/12/24 01:30 09/16/24 13:23 DC 09/15/24 23:45 75 MLS/HR Sucralfate (Carafate) 1 gm Q6H PO 09/14/24 20:30 10/14/24 20:29 09/17/24 14:27 1 GM Thiamine HCl (Vitamin B-1) 100 mg HS PO 09/16/24 21:00 10/16/24 20:59 09/16/24 20:27 100 MG Thiamine HCl 100 mg/Folic Acid 1 mg/Multivitamins/ Minerals 10 ml/ Sodium Chloride 1,011.2 ml @ 100 mls/ hr Q10H IV 09/13/24 06:30 09/13/24 12:32 DC 09/13/24 06:49 100 MLS/HR Thiamine HCl 100 mg/Folic Acid 1 mg/Multivitamins/ Minerals 10 ml/ Sodium Chloride 1,011.2 ml @ 100 mls/ hr Q24H IV 09/12/24 09:00 09/13/24 06:16 DC 09/12/24 17:12 100 MLS/HR Thiamine HCl 100 mg/Folic Acid 1 mg/Multivitamins/ Minerals 10 ml/ Sodium Chloride 1,011.2 ml @ 100 mls/ hr Q24H IV 09/14/24 06:30 09/14/24 16:37 DC 09/14/24 09:33 100 MLS/HR DIAGNOSTICS / RADIOLOGY: [ ] ASSESSMENT: Acute GI bleed, POA Hypotension, POA Macrocytic hyperchromic anemia, POA Mild hyponatremia, POA Multiple compression fractures, T3, T4, T7, L1, L2, POA Nephrolithiasis, POA, 7.3 mm stone in the right renal pelvis, by CT on th Severe aortic stenosis on Echo (09/13/24) Hyponatremia Hx of alcohol abuse Tobacco use disorder PLAN: - downgraded to medical floor - continue to follow GI input and recommendation -continue Protonix 40 mg p.o. b.i.d. -continue Carafate 1 g p.o. q.6 hours -continue to monitor for signs of withdrawal - Continue PRN pain control - Trend Hgb, transfuse if < 7.0 - Continue CIWA protocol - Cardiology consulted, appreciate recommendations -neurosurgery contacted, recommended brace. - GI consulted, appreciate recommendations ROXIE HARPER MD Sep 17, 2024 16:50
--- NOTE | 2024-09-17 17:20 | NUR ---
ADVISED DIRECTOR Janet DHALIWAL OF ORDER FOR TLSO BRACE AND DEFER TO FLOOR TO FOLLOW UP TO OBTAIN,
[2024-09-18] VITALS (15 sets, daily range): BP systolic 102–146; BP diastolic 76–88; PULSE 82–102; RESP 18–24; TEMP 97.8–98.1; O2SAT 89–98
[2024-09-18] MEDS: LIDOCAINE 5% TOPICAL PATCH TP SCH (08:41)
[2024-09-18] MEDS ORDERED: hydrALAZine 20MG/ML VIAL IV PRN (13:00)
--- NOTE | 2024-09-18 13:28 | PN ---
[facility] PROGRESS NOTE Date of Service: Sep 18, 2024 Time of Service: 13:27 SUBJECTIVE: 09/13 patient seen at bedside, no acute events overnight. GI recommending EGD and colonoscopy, we will follow up postprocedure. He was transfused with 2 units packed red blood cell, hemoglobin now at 9.5, remainder of his labs are relatively unremarkable. MRI of thoracic spine showing subacute compression fracture involving T8 with 50% loss of height, no evidence of metastatic disease. Echo showing normal EF of 50-55% with severe valvular aortic stenosis, peak aortic valve gradient of 86 mm Hg, per Cardiology patient may need surgical intervention to address aortic valve 09/14 patient seen at bedside, no acute events overnight. EGD pending later today, we will follow up postprocedure. He has been afebrile, hemodynamically stable saturating well on 2 L nasal cannula. Hemoglobin decreased from 9.5 down to 9.1, remainder of his labs are relatively unremarkable. 09/15 patient is seen and examined at bedside, no acute events overnight, case discussed with the RN, patient alert and oriented x3, following commands, BP 115/70, afebrile, saturating 98% on 2 L nasal cannula. Hemoglobin today 9.7, stable, hematocrit 29.2. Magnesium 1.5. EGD done 09/14 findings of 4 duodenal ulcers s/p clipping x 1. 09/16 patient is seen and examined at bedside, no acute events overnight, patient downgraded to the PCU, hemodynamically stable, afebrile, saturating normal on room air. Denies back pain, no urinary or bowel incontinence or retention. Results of cervical, thoracic and lumbar spine MRI reviewed, discussed with the patient. Mild drop in hemoglobin today at 80.0, we will follow CBC in a.m. and transfuse as needed. We will downgraded to the medical floor. We will give magnesium sulfate 2 g IV x1 09/17 patient is seen and examined at bedside, case discussed with the RN, no acute events overnight, patient comfortably in bed, BP 125/60, afebrile, saturating normal on room air. Per discussion with case management, Neurosurgery contacted, recommended brace, case management to make arrangements. Pending daughter to come to the hospital on Sunday to take the patient back to [place]. 09/18 patient is seen and examined at bedside, case discussed with the RN, no acute events overnight. He remains hemodynamically stable, currently on supplemental oxygen via nasal cannula at 3 L, saturating 98%. Case discussed with case management who is making arrangements for the patient to get a brace per Neurosurgery recommendation. We will do a 6 minute walk, patient may require to be discharge on home oxygen. We will follow up. REVIEW OF SYSTEMS 12 point review of systems negative unless noted in HPI PHYSICAL EXAM GENERAL APPEARANCE: The patient is awake, alert, and oriented, in no acute cardiopulmonary distress. NEUROLOGICAL: Cranial nerves II-XII grossly intact. Motor is 5/5 in bilateral upper and lower extremities proximal to distal. No sensory deficits. HEENT: Face is symmetric. Pupils are equal and reactive. Extraocular movements are intact. NECK: Supple. No JVD. No thyromegaly. No submental, submandibular, pre-/postauricular, occipital or supraclavicular lymphadenopathy. CHEST: Normal chest expansion. No Telemetry. LUNGS: Absence of any rales, rhonchi or any wheezing. CARDIOVASCULAR: Regular. S1 and S2 normal. No appreciable rubs, murmurs or gallops. ABDOMEN: Soft, nontender, and nondistended. There is no rebound, voluntary guarding, or rigidity. : Deferred. No Martinez. EXTREMITIES: Non-edematous and not cyanotic. No clubbing. Good capillary refill. SKIN: No skin breakdown. Vital Signs (last 8hr) Date Time Temp Pulse Resp B/P (MAP) Pulse Ox O2 Delivery O2 Flow Rate FiO2 09/18/24 11:25 101 24 N/Cannula Low lpm 3.0 09/18/24 11:24 101 24 09/18/24 08:00 97.9 82 18 140/85 93 Nasal Cannula 3.0 09/18/24 07:21 88 18 N/A Room Air 21 09/18/24 07:09 85 18 N/Cannula Low lpm 2.0 28 09/18/24 07:07 85 20 LABS: Laboratory: Test 09/17/24 04:41 Range/Units White Blood Count 7.9 4.8-10.8 K/uL Red Blood Count 2.41 L 4.50-6.20 MIL/uL Hemoglobin 8.3 L 14.0-18.0 g/dL Hematocrit 24.2 L 42-54 % Mean Corpuscular Volume 100.4 H 79-99 fL Mean Corpuscular Hemoglobin 34.4 H 27.0-33.0 pg Mean Corpuscular Hemoglobin Concent 34.3 32.0-36.0 g/dL Red Cell Distribution Width 18.0 H 11.0-15.5 % Platelet Count 213 130-400 K/uL Mean Platelet Volume 9.7 7.5-10.5 fL Nucleated Red Blood Cells 0.0 0.0-0.19 % Sodium Level 137 136-145 mmol/L Potassium Level 3.8 3.5-5.1 mmol/L Chloride Level 103 101-111 mmol/L Carbon Dioxide Level 29 21-32 mmol/L Blood Urea Nitrogen 18 7-18 mg/dL Creatinine 0.9 0.5-1.3 mg/dL Glomerular Filtration Rate Calc 95 >90 mL/min Random Glucose 139 H 70-105 mg/dL Total Calcium 7.9 L 8.5-10.1 mg/dL Magnesium Level 1.90 1.80-2.40 mg/dL Total Bilirubin 0.2 0.2-1.0 mg/dL Aspartate Amino Transf (AST/SGOT) 17 10-37 U/L Alanine Aminotransferase (ALT/SGPT) 17 12-78 U/L Alkaline Phosphatase 60 50-136 U/L Total Protein 4.5 L 6.0-8.3 g/dL Albumin 1.9 L 3.5-5.0 g/dL Current Medications Medications (Trade) Dose Ordered Sig/Samina Route PRN Reason Start Time Stop Time Status Last Admin Dose Admin Acetaminophen (TYLenol 325MG TAB) 650 mg Q6H PRN PO TEMPERATURE GREATER THAN 101.5 09/12/24 01:30 10/12/24 01:29 09/18/24 08:40 650 MG Acetaminophen/ Hydrocodone Bitart (NORco 10) 1 tab Q6H PRN PO SEVERE PAIN (7-10) 09/12/24 09:00 09/12/24 09:59 DC Acetaminophen/ Hydrocodone Bitart (NORco 5/325MG) 1 tab Q6H PRN PO MODERATE PAIN (4-6) 09/12/24 09:00 09/12/24 09:59 DC Amlodipine Besylate (NorvASC 5MG TAB) 5 mg DAILY PO 09/18/24 13:00 10/18/24 12:59 Bacitracin (Bacitracin) 1 each BID TP 09/13/24 21:00 09/27/24 20:59 09/18/24 08:16 1 EACH Ceftriaxone Sodium (Rocephin 2gm Inj) 2 gm Q24H IVPB 09/12/24 09:00 09/22/24 08:59 09/18/24 08:13 2 GM Chlordiazepoxide HCl (LIBrium 25 MG CAP) 25 mg Q2H PRN PO ALCOHOL WITHDRAWAL PROTOCOL 09/12/24 09:00 09/19/24 08:59 Dexamethasone (DeCADron 4 mg TAB) 4 mg Q12H9 PO 09/14/24 21:00 10/14/24 20:59 09/18/24 08:15 4 MG Folic Acid (FOLic ACID 1 MG TABLET) 1 mg DAILY PO 09/17/24 09:00 10/17/24 08:59 09/18/24 08:15 1 MG Hydralazine HCl (APRESOLine 20MG INJ) 5 mg Q6H PRN IV ADMINISTER FOR SBP > 160 09/18/24 13:00 10/18/24 12:59 Hydromorphone HCl (DiLAUDid 0.5MG INJ) 0.5 mg Q4H PRN IVP BREAKTHROUGH PAIN ONLY 09/12/24 09:00 09/17/24 08:59 DC Ipratropium [place] (AtrovENT UD) 0.5 MG [id number] IH 09/15/24 00:00 10/15/24 00:00 09/18/24 11:22 0.5 MG Lactulose (Constulose 20gm/ 30ml Udcup) 20 gm BID PRN PO CONSTIPATION 09/16/24 13:30 10/16/24 13:29 09/17/24 17:22 20 GM Lactulose (Constulose 20gm/ 30ml Udcup) 20 gm Q2H PO 09/12/24 15:00 09/12/24 18:00 DC 09/12/24 17:11 20 GM Lidocaine (Lidoderm Patch 5%) 1 patch DAILY TP 09/18/24 09:00 10/18/24 08:59 09/18/24 08:41 1 PATCH Lidocaine (Lidoderm Patch 5%) 1 patch HS TP 09/16/24 21:00 09/18/24 08:33 DC 09/16/24 20:27 1 PATCH Lorazepam (AtiVAN) 2 mg Q4H PRN IVP ALCOHOL WITHDRAWAL PROTOCOL 09/12/24 09:00 09/19/24 08:59 Magnesium Sulfate 50 ml @ 0 mls/hr PROTOCOL IV 09/16/24 09:30 09/16/24 09:10 DC Magnesium Sulfate 50 ml @ 0 mls/hr PROTOCOL PRN IV MAGNESIUM PROTOCOL 09/12/24 08:00 10/12/24 07:59 09/16/24 06:26 25 MLS/HR Morphine Sulfate (morPHINE 2MG SYG) 2 mg Q4H PRN IVP SEVERE PAIN (7-10) 09/12/24 09:30 09/17/24 12:29 DC 09/17/24 05:27 2 MG Octreotide Acetate 1250 mcg/ Sodium Chloride 250 ml @ 0 mls/hr PROTOCOL IV 09/12/24 04:00 09/15/24 08:59 DC 09/13/24 23:02 5 MLS/HR Octreotide Acetate (SandoSTATIN) 1,000 mcg ONCE IV 09/12/24 04:00 09/12/24 03:58 DC Ondansetron HCl (zoFRAN 4MG INJ) 4 mg Q6H PRN IV NAUSEA/VOMITING 09/12/24 01:30 10/12/24 01:29 09/14/24 19:58 4 MG Pantoprazole Sodium (PROTonix 40MG TAB) 40 mg BID PO 09/15/24 09:00 10/15/24 08:59 09/18/24 08:14 40 MG Pantoprazole Sodium 80 mg/ Sodium Chloride 100 ml @ 10 mls/hr Q10H IVP 09/12/24 04:00 09/15/24 08:59 DC 09/15/24 00:25 10 MLS/HR Pharmacy Profile Note (Pharmacy Communication) 1 each ONCE MISC 09/14/24 16:00 09/14/24 15:57 DC Pharmacy Profile Note (Pharmacy Communication) 1 each PROTOCOL PRN MISC ETOH Withdrawal Score changes 09/12/24 09:00 09/19/24 08:59 Polyethylene Glycol (MIRalax 3350 17 GM POWD.PACK) 17 gm DAILY PO 09/13/24 09:00 10/13/24 08:59 09/18/24 08:14 17 GM Psyllium Hydrophilic Mucilloid (Metamucil) 1 tbs DAILY PRN PO CONSTIPATION 09/18/24 17:30 10/18/24 17:29 Sodium Chloride 1,000 ml @ 75 mls/hr [id number] IV 09/12/24 01:30 09/16/24 13:23 DC 09/15/24 23:45 75 MLS/HR Sucralfate (Carafate) 1 gm Q6H PO 09/14/24 20:30 10/14/24 20:29 09/18/24 08:39 1 GM Thiamine HCl (Vitamin B-1) 100 mg HS PO 09/16/24 21:00 10/16/24 20:59 09/17/24 20:46 100 MG Thiamine HCl 100 mg/Folic Acid 1 mg/Multivitamins/ Minerals 10 ml/ Sodium Chloride 1,011.2 ml @ 100 mls/ hr Q10H IV 09/13/24 06:30 09/13/24 12:32 DC 09/13/24 06:49 100 MLS/HR Thiamine HCl 100 mg/Folic Acid 1 mg/Multivitamins/ Minerals 10 ml/ Sodium Chloride 1,011.2 ml @ 100 mls/ hr Q24H IV 09/12/24 09:00 09/13/24 06:16 DC 09/12/24 17:12 100 MLS/HR Thiamine HCl 100 mg/Folic Acid 1 mg/Multivitamins/ Minerals 10 ml/ Sodium Chloride 1,011.2 ml @ 100 mls/ hr Q24H IV 09/14/24 06:30 09/14/24 16:37 DC 09/14/24 09:33 100 MLS/HR DIAGNOSTICS / RADIOLOGY: [ ] ASSESSMENT: Acute GI bleed, POA Hypotension, POA Macrocytic hyperchromic anemia, POA Mild hyponatremia, POA Multiple compression fractures, T3, T4, T7, L1, L2, POA Nephrolithiasis, POA, 7.3 mm stone in the right renal pelvis, by CT on Severe aortic stenosis on Echo (09/13/24) Hyponatremia Hx of alcohol abuse Tobacco use disorder PLAN: - downgraded to medical floor - continue to follow GI input and recommendation -continue Protonix 40 mg p.o. b.i.d. -continue Carafate 1 g p.o. q.6 hours -continue to monitor for signs of withdrawal - Continue PRN pain control - Trend Hgb, transfuse if < 7.0 - Continue CIWA protocol - Cardiology consulted, appreciate recommendations -neurosurgery contacted, recommended brace. - GI consulted, appreciate recommendations ROXIE HARPER MD Sep 18, 2024 13:28
--- NOTE | 2024-09-18 15:17 | HMCIMG ---
Exam Type: CHEST 1VW Clinical Information: congestion, shortness of breath Comparison: None Findings: Ill-defined infiltrates of both lungs are seen consistent with bilateral pneumonia. . The heart is normal in size. The bony and soft tissue structures show no worrisome pathology. IMPRESSION: Findings consistent with pneumonia. Follow-up is advised.
--- NOTE | 2024-09-18 18:31 | NUR ---
CM NOTE/HOME O2 CM spoke to patient regarding home o2 needs. CM explained that Dr. Wynn anticipates discharge Sunday but patient will be needing home o2 at discharge. CM provided private pay pricing for portable setup from [employer] and explained that hospital can lend concentrator until he obtains his own DME. Verbalized understanding but asked CM to call daughter Christiana Schmitz. States he will not remember details and that she is the one making arrangements to transport him with her back to [place]. Patient gave CM consent to discuss pending arrangements and updates. CM then called daughter Kae Schmitz [phone]. Updated with above. Provided pricing for portable setup with [employer] $255 and then $80/tank refill. CM advised daughter that best option would be to obtain DME from [place] and then travel back with items. Explained that some DME companies are not willing to service items if not purchased at their DME agency. Verbalized understanding. Explained difference between traditional home o2 concentrator setup vs portable oxygen concentrator ([employer]). Notified daughter that some DME agencies rent POC devices. Verbalized understanding. CM offered to assist with clinical if needed to complete arrangements. CM also offered to email prescription. Daughter states she will be calling DME agencies and provided CM with her email [email or web address] for prescription. CM also advised daughter that d/c planning is for this Sunday. Addendum: 09/18/24 at 1843 by CAITLIN ZAPATA CM Amended: Links added.
[2024-09-18] MEDS: amLODIPine 5 MG TAB PO SCH (18:37)
[2024-09-18] MEDS: PSYLLIUM SEED 1 EACH PACKET PO PRN (21:51)
[2024-09-19] VITALS (15 sets, daily range): BP systolic 96–141; BP diastolic 62–89; PULSE 82–103; RESP 20–24; TEMP 97.7–98.6; O2SAT 90–96
[2024-09-19 08:39] LABS: AMPHET/METH SCREEN,URINE NEGATIVE (NEGATIVE); BARBITURATE SCREEN, URINE NEGATIVE (NEGATIVE); BENZODIAZEPINES SCREEN,URINE NEGATIVE (NEGATIVE); CANNABINOID SCREEN,URINE NEGATIVE (NEGATIVE); COCAINE SCREEN,URINE NEGATIVE (NEGATIVE); OPIATE SCREEN,URINE NEGATIVE (NEGATIVE); PHENCYCLIDINE SCREEN,URINE NEGATIVE (NEGATIVE)
--- NOTE | 2024-09-19 13:36 | PN ---
[facility] PROGRESS NOTE Date of Service: Sep 19, 2024 Time of Service: 13:35 SUBJECTIVE: 09/13 patient seen at bedside, no acute events overnight. GI recommending EGD and colonoscopy, we will follow up postprocedure. He was transfused with 2 units packed red blood cell, hemoglobin now at 9.5, remainder of his labs are relatively unremarkable. MRI of thoracic spine showing subacute compression fracture involving T8 with 50% loss of height, no evidence of metastatic disease. Echo showing normal EF of 50-55% with severe valvular aortic stenosis, peak aortic valve gradient of 86 mm Hg, per Cardiology patient may need surgical intervention to address aortic valve 09/14 patient seen at bedside, no acute events overnight. EGD pending later today, we will follow up postprocedure. He has been afebrile, hemodynamically stable saturating well on 2 L nasal cannula. Hemoglobin decreased from 9.5 down to 9.1, remainder of his labs are relatively unremarkable. 09/15 patient is seen and examined at bedside, no acute events overnight, case discussed with the RN, patient alert and oriented x3, following commands, BP 115/70, afebrile, saturating 98% on 2 L nasal cannula. Hemoglobin today 9.7, stable, hematocrit 29.2. Magnesium 1.5. EGD done 09/14 findings of 4 duodenal ulcers s/p clipping x 1. 09/16 patient is seen and examined at bedside, no acute events overnight, patient downgraded to the PCU, hemodynamically stable, afebrile, saturating normal on room air. Denies back pain, no urinary or bowel incontinence or retention. Results of cervical, thoracic and lumbar spine MRI reviewed, discussed with the patient. Mild drop in hemoglobin today at 80.0, we will follow CBC in a.m. and transfuse as needed. We will downgraded to the medical floor. We will give magnesium sulfate 2 g IV x1 09/17 patient is seen and examined at bedside, case discussed with the RN, no acute events overnight, patient comfortably in bed, BP 125/60, afebrile, saturating normal on room air. Per discussion with case management, Neurosurgery contacted, recommended brace, case management to make arrangements. Pending daughter to come to the hospital on Sunday to take the patient back to [place]. 09/18 patient is seen and examined at bedside, case discussed with the RN, no acute events overnight. He remains hemodynamically stable, currently on supplemental oxygen via nasal cannula at 3 L, saturating 98%. Case discussed with case management who is making arrangements for the patient to get a brace per Neurosurgery recommendation. We will do a 6 minute walk, patient may require to be discharge on home oxygen. We will follow up. 09/19 patient is seen and examined at bedside, no acute events overnight, case discussed with case management, pending daughter to arrive from [place] to discharge patient home [place] tomorrow. Case management making arrangements for the patient to be discharged on home oxygen REVIEW OF SYSTEMS 12 point review of systems negative unless noted in HPI PHYSICAL EXAM GENERAL APPEARANCE: The patient is awake, alert, and oriented, in no acute cardiopulmonary distress. NEUROLOGICAL: Cranial nerves II-XII grossly intact. Motor is 5/5 in bilateral upper and lower extremities proximal to distal. No sensory deficits. HEENT: Face is symmetric. Pupils are equal and reactive. Extraocular movements are intact. NECK: Supple. No JVD. No thyromegaly. No submental, submandibular, pre- /postauricular, occipital or supraclavicular lymphadenopathy. CHEST: Normal chest expansion. No Telemetry. LUNGS: Absence of any rales, rhonchi or any wheezing. CARDIOVASCULAR: Regular. S1 and S2 normal. No appreciable rubs, murmurs or gallops. ABDOMEN: Soft, nontender, and nondistended. There is no rebound, voluntary gu arding, or rigidity. : Deferred. No Martinez. EXTREMITIES: Non-edematous and not cyanotic. No clubbing. Good capillary refill. SKIN: No skin breakdown. Vital Signs (last 8hr) Date Time Temp Pulse Resp B/P (MAP) Pulse Ox O2 Delivery O2 Flow Rate FiO2 09/19/24 12:22 99 20 09/19/24 12:20 99 20 N/Cannula Low lpm 4.0 36 09/19/24 12:00 98.6 95 20 112/74 93 Room Air 21 09/19/24 10:49 95 Nasal Cannula* 2 28 09/19/24 08:00 97.9 82 20 141/89 95 Nasal Cannula 4.5 09/19/24 06:54 86 21 N/Cannula Low lpm 4.0 09/19/24 06:45 84 21 N/Cannula Low lpm 3.0 09/19/24 06:44 84 21 LABS: Laboratory: Test 09/19/24 08:11 Range/Units Urine Opiates Screen NEGATIVE NEGATIVE Urine Barbiturates Screen NEGATIVE NEGATIVE Urine Phencyclidine Screen NEGATIVE NEGATIVE Urine Amphetamines Screen NEGATIVE NEGATIVE Urine Benzodiazepines Screen NEGATIVE NEGATIVE Urine Cocaine Screen NEGATIVE NEGATIVE Urine Marijuana (THC) Screen NEGATIVE NEGATIVE Current Medications Medications (Trade) Dose Ordered Sig/Samina Route PRN Reason Start Time Stop Time Status Last Admin Dose Admin Acetaminophen (TYLenol 325MG TAB) 650 mg Q6H PRN PO TEMPERATURE GREATER THAN 101.5 09/12/24 01:30 10/12/24 01:29 09/19/24 10:04 650 MG Acetaminophen/ Hydrocodone Bitart (NORco 10) 1 tab Q6H PRN PO SEVERE PAIN (7-10) 09/12/24 09:00 09/12/24 09:59 DC Acetaminophen/ Hydrocodone Bitart (NORco 5/325MG) 1 tab Q6H PRN PO MODERATE PAIN (4-6) 09/12/24 09:00 09/12/24 09:59 DC Amlodipine Besylate (NorvASC 5MG TAB) 5 mg DAILY PO 09/18/24 13:00 10/18/24 12:59 09/19/24 10:03 5 MG Bacitracin (Bacitracin) 1 each BID TP 09/13/24 21:00 09/27/24 20:59 09/19/24 10:02 1 EACH Ceftriaxone Sodium (Rocephin 2gm Inj) 2 gm Q24H IVPB 09/12/24 09:00 09/22/24 08:59 09/19/24 10:03 2 GM Chlordiazepoxide HCl (LIBrium 25 MG CAP) 25 mg Q2H PRN PO ALCOHOL WITHDRAWAL PROTOCOL 09/12/24 09:00 09/19/24 08:59 DC Dexamethasone (DeCADron 4 mg TAB) 4 mg Q12H9 PO 09/14/24 21:00 10/14/24 20:59 09/19/24 10:04 4 MG Folic Acid (FOLic ACID 1 MG TABLET) 1 mg DAILY PO 09/17/24 09:00 10/17/24 08:59 09/19/24 10:04 1 MG Hydralazine HCl (APRESOLine 20MG INJ) 5 mg Q6H PRN IV ADMINISTER FOR SBP > 160 09/18/24 13:00 10/18/24 12:59 Hydromorphone HCl (DiLAUDid 0.5MG INJ) 0.5 mg Q4H PRN IVP BREAKTHROUGH PAIN ONLY 09/12/24 09:00 09/17/24 08:59 DC Ipratropium Ulen (AtrovENT UD) 0.5 MG [id number] IH 09/15/24 00:00 10/15/24 00:00 09/19/24 12:22 0.5 MG Lactulose (Constulose 20gm/ 30ml Udcup) 20 gm BID PRN PO CONSTIPATION 09/16/24 13:30 10/16/24 13:29 09/17/24 17:22 20 GM Lactulose (Constulose 20gm/ 30ml Udcup) 20 gm Q2H PO 09/12/24 15:00 09/12/24 18:00 DC 09/12/24 17:11 20 GM Lidocaine (Lidoderm Patch 5%) 1 patch DAILY TP 09/18/24 09:00 10/18/24 08:59 09/19/24 10:04 1 PATCH Lidocaine (Lidoderm Patch 5%) 1 patch HS TP 09/16/24 21:00 09/18/24 08:33 DC 09/16/24 20:27 1 PATCH Lorazepam (AtiVAN) 2 mg Q4H PRN IVP ALCOHOL WITHDRAWAL PROTOCOL 09/12/24 09:00 09/19/24 08:59 DC Magnesium Sulfate 50 ml @ 0 mls/hr PROTOCOL IV 09/16/24 09:30 09/16/24 09:10 DC Magnesium Sulfate 50 ml @ 0 mls/hr PROTOCOL PRN IV MAGNESIUM PROTOCOL 09/12/24 08:00 10/12/24 07:59 09/16/24 06:26 25 MLS/HR Morphine Sulfate (morPHINE 2MG SYG) 2 mg Q4H PRN IVP SEVERE PAIN (7-10) 09/12/24 09:30 09/17/24 12:29 DC 09/17/24 05:27 2 MG Octreotide Acetate 1250 mcg/ Sodium Chloride 250 ml @ 0 mls/hr PROTOCOL IV 09/12/24 04:00 09/15/24 08:59 DC 09/13/24 23:02 5 MLS/HR Octreotide Acetate (SandoSTATIN) 1,000 mcg ONCE IV 09/12/24 04:00 09/12/24 03:58 DC Ondansetron HCl (zoFRAN 4MG INJ) 4 mg Q6H PRN IV NAUSEA/VOMITING 09/12/24 01:30 10/12/24 01:29 09/14/24 19:58 4 MG Pantoprazole Sodium (PROTonix 40MG TAB) 40 mg BID PO 09/15/24 09:00 10/15/24 08:59 09/19/24 10:03 40 MG Pantoprazole Sodium 80 mg/ Sodium Chloride 100 ml @ 10 mls/hr Q10H IVP 09/12/24 04:00 09/15/24 08:59 DC 09/15/24 00:25 10 MLS/HR Pharmacy Profile Note (Pharmacy Communication) 1 each ONCE MISC 09/14/24 16:00 09/14/24 15:57 DC Pharmacy Profile Note (Pharmacy Communication) 1 each PROTOCOL PRN MISC ETOH Withdrawal Score changes 09/12/24 09:00 09/19/24 08:59 DC Polyethylene Glycol (MIRalax 3350 17 GM POWD.PACK) 17 gm DAILY PO 09/13/24 09:00 10/13/24 08:59 09/19/24 10:02 17 GM Psyllium Hydrophilic Mucilloid (Metamucil) 1 tbs DAILY PRN PO CONSTIPATION 09/18/24 17:30 10/18/24 17:29 09/19/24 10:05 1 TBS Sodium Chloride 1,000 ml @ 75 mls/hr [id number] IV 09/12/24 01:30 09/16/24 13:23 DC 09/15/24 23:45 75 MLS/HR Sucralfate (Carafate) 1 gm Q6H PO 09/14/24 20:30 10/14/24 20:29 09/19/24 10:03 1 GM Thiamine HCl (Vitamin B-1) 100 mg HS PO 09/16/24 21:00 10/16/24 20:59 09/18/24 21:47 100 MG Thiamine HCl 100 mg/Folic Acid 1 mg/Multivitamins/ Minerals 10 ml/ Sodium Chloride 1,011.2 ml @ 100 mls/ hr Q10H IV 09/13/24 06:30 09/13/24 12:32 DC 09/13/24 06:49 100 MLS/HR Thiamine HCl 100 mg/Folic Acid 1 mg/Multivitamins/ Minerals 10 ml/ Sodium Chloride 1,011.2 ml @ 100 mls/ hr Q24H IV 09/12/24 09:00 09/13/24 06:16 DC 09/12/24 17:12 100 MLS/HR Thiamine HCl 100 mg/Folic Acid 1 mg/Multivitamins/ Minerals 10 ml/ Sodium Chloride 1,011.2 ml @ 100 mls/ hr Q24H IV 09/14/24 06:30 09/14/24 16:37 DC 09/14/24 09:33 100 MLS/HR DIAGNOSTICS / RADIOLOGY: [ ] ASSESSMENT: Acute GI bleed, POA Hypotension, POA Macrocytic hyperchromic anemia, POA Mild hyponatremia, POA Multiple compression fractures, T3, T4, T7, L1, L2, POA Nephrolithiasis, POA, 7.3 mm stone in the right renal pelvis, by CT on Severe aortic stenosis on Echo (09/13/24) Hyponatremia Hx of alcohol abuse Tobacco use disorder PLAN: - downgraded to medical floor - continue to follow GI input and recommendation -continue Protonix 40 mg p.o. b.i.d. -continue Carafate 1 g p.o. q.6 hours -continue to monitor for signs of withdrawal - Continue PRN pain control - Trend Hgb, transfuse if < 7.0 - Continue CIWA protocol - Cardiology consulted, appreciate recommendations -neurosurgery contacted, recommended brace. - GI consulted, appreciate recommendations Disposition: case discussed with case management, pending daughter to arrive from [place] to discharge home tomorrow. Case management making arrangements for the patient to be discharged on home oxygen ROXIE HARPER MD Sep 19, 2024 13:36
--- NOTE | 2024-09-19 16:22 | NUR ---
CM note Spoke to daughter Kae Schmitz states she obtained a DME from [facility] pending to be delivered today and will arrive with equipment tomorrow for plan of discharge.
[2024-09-19 20:10] LABS: AMPHETAMINES SERUM Negative ng/mL (Cutoff:50); COCAINE+METABOLITES SERUM Negative ng/mL (Cutoff:25)
[2024-09-20] VITALS (14 sets, daily range): BP systolic 109–142; BP diastolic 63–81; PULSE 79–104; RESP 19–21; TEMP 97.7–98.2; O2SAT 92–95
--- NOTE | 2024-09-20 09:47 | PN ---
[facility] PROGRESS NOTE Date of Service: Sep 20, 2024 Time of Service: 09:45 SUBJECTIVE: 09/13 patient seen at bedside, no acute events overnight. GI recommending EGD and colonoscopy, we will follow up postprocedure. He was transfused with 2 units packed red blood cell, hemoglobin now at 9.5, remainder of his labs are relatively unremarkable. MRI of thoracic spine showing subacute compression fracture involving T8 with 50% loss of height, no evidence of metastatic disease. Echo showing normal EF of 50-55% with severe valvular aortic stenosis, peak aortic valve gradient of 86 mm Hg, per Cardiology patient may need surgical intervention to address aortic valve 09/14 patient seen at bedside, no acute events overnight. EGD pending later today, we will follow up postprocedure. He has been afebrile, hemodynamically stable saturating well on 2 L nasal cannula. Hemoglobin decreased from 9.5 down to 9.1, remainder of his labs are relatively unremarkable. 09/15 patient is seen and examined at bedside, no acute events overnight, case discussed with the RN, patient alert and oriented x3, following commands, BP 115/70, afebrile, saturating 98% on 2 L nasal cannula. Hemoglobin today 9.7, stable, hematocrit 29.2. Magnesium 1.5. EGD done 09/14 findings of 4 duodenal ulcers s/p clipping x 1. 09/16 patient is seen and examined at bedside, no acute events overnight, patient downgraded to the PCU, hemodynamically stable, afebrile, saturating normal on room air. Denies back pain, no urinary or bowel incontinence or retention. Results of cervical, thoracic and lumbar spine MRI reviewed, discussed with the patient. Mild drop in hemoglobin today at 80.0, we will follow CBC in a.m. and transfuse as needed. We will downgraded to the medical floor. We will give magnesium sulfate 2 g IV x1 09/17 patient is seen and examined at bedside, case discussed with the RN, no acute events overnight, patient comfortably in bed, BP 125/60, afebrile, saturating normal on room air. Per discussion with case management, Neurosurgery contacted, recommended brace, case management to make arrangements. Pending daughter to come to the hospital on Sunday to take the patient back to [place]. 09/18 patient is seen and examined at bedside, case discussed with the RN, no acute events overnight. He remains hemodynamically stable, currently on supplemental oxygen via nasal cannula at 3 L, saturating 98%. Case discussed with case management who is making arrangements for the patient to get a brace per Neurosurgery recommendation. We will do a 6 minute walk, patient may require to be discharge on home oxygen. We will follow up. 09/19 patient is seen and examined at bedside, no acute events overnight, case discussed with case management, pending daughter to arrive from [place] to discharge patient home [place] tomorrow. Case management making arrangements for the patient to be discharged on home oxygen 09/20 patient is seen and examined at bedside, case discussed with the RN, no acute events overnight. Per discussion with the patient he has not had a BM for the last 4-5 days besides laxative given. He feels mild abdominal discomfort, he is passing gas. On examination his abdomen is soft and bowel sounds are present. We will order a KUB, based on results we will give Mag citrate and possible Fleet enema. Daughter is coming in today to pick him up to get him back to [place]. Apparently she has a already made arrangements for him to get oxygen when he gets back home. Oxygen is set up to be transported to [place] from the hospital per discussion with the RN. The patient does not want to leave the hospital today because he is afraid that he is going to have diarrhea in the middle of the rude. I told the patient that we will wait for the KUB, if he needs a laxative we will give it to him. If he has a BM before two or 3:00 p.m. he can be discharge home, however the patient refused, prefers to go home tomorrow. We will continue to follow up. REVIEW OF SYSTEMS 12 point review of systems negative unless noted in HPI PHYSICAL EXAM GENERAL APPEARANCE: The patient is awake, alert, and oriented, in no acute cardiopulmonary distress. NEUROLOGICAL: Cranial nerves II-XII grossly intact. Motor is 5/5 in bilateral upper and lower extremities proximal to distal. No sensory deficits. HEENT: Face is symmetric. Pupils are equal and reactive. Extraocular movements are intact. NECK: Supple. No JVD. No thyromegaly. No submental, submandibular, pre- /postauricular, occipital or supraclavicular lymphadenopathy. CHEST: Normal chest expansion. No Telemetry. LUNGS: Absence of any rales, rhonchi or any wheezing. CARDIOVASCULAR: Regular. S1 and S2 normal. No appreciable rubs, murmurs or gallops. ABDOMEN: Soft, nontender, and nondistended. There is no rebound, voluntary guarding, or rigidity. : Deferred. No Martinez. EXTREMITIES: Non-edematous and not cyanotic. No clubbing. Good capillary refill. SKIN: No skin breakdown. Vital Signs (last 8hr) Date Time Temp Pulse Resp B/P (MAP) Pulse Ox O2 Delivery O2 Flow Rate FiO2 09/20/24 07:44 97.7 84 21 130/74 92 Nasal Cannula 4.0 09/20/24 07:23 93 Nasal Cannula* 3 32 09/20/24 06:36 84 20 09/20/24 04:00 97.9 86 19 142/81 93 Nasal Cannula 4.0 LABS: Laboratory: Test 09/19/24 08:11 Range/Units Urine Opiates Screen NEGATIVE NEGATIVE Urine Barbiturates Screen NEGATIVE NEGATIVE Urine Phencyclidine Screen NEGATIVE NEGATIVE Urine Amphetamines Screen NEGATIVE NEGATIVE Urine Benzodiazepines Screen NEGATIVE NEGATIVE Urine Cocaine Screen NEGATIVE NEGATIVE Urine Marijuana (THC) Screen NEGATIVE NEGATIVE Current Medications Medications (Trade) Dose Ordered Sig/Samina Route PRN Reason Start Time Stop Time Status Last Admin Dose Admin Acetaminophen (TYLenol 325MG TAB) 650 mg Q6H PRN PO TEMPERATURE GREATER THAN 101.5 09/12/24 01:30 10/12/24 01:29 09/19/24 20:05 650 MG Acetaminophen/ Hydrocodone Bitart (NORco 10) 1 tab Q6H PRN PO SEVERE PAIN (7-10) 09/12/24 09:00 09/12/24 09:59 DC Acetaminophen/ Hydrocodone Bitart (NORco 5/325MG) 1 tab Q6H PRN PO MODERATE PAIN (4-6) 09/12/24 09:00 09/12/24 09:59 DC Amlodipine Besylate (NorvASC 5MG TAB) 5 mg DAILY PO 09/18/24 13:00 10/18/24 12:59 09/20/24 09:00 5 MG Bacitracin (Bacitracin) 1 each BID TP 09/13/24 21:00 09/27/24 20:59 09/20/24 09:00 1 EACH Ceftriaxone Sodium (Rocephin 2gm Inj) 2 gm Q24H IVPB 09/12/24 09:00 09/22/24 08:59 09/20/24 09:01 2 GM Chlordiazepoxide HCl (LIBrium 25 MG CAP) 25 mg Q2H PRN PO ALCOHOL WITHDRAWAL PROTOCOL 09/12/24 09:00 09/19/24 08:59 DC Dexamethasone (DeCADron 4 mg TAB) 4 mg Q12H9 PO 09/14/24 21:00 10/14/24 20:59 09/20/24 09:01 4 MG Folic Acid (FOLic ACID 1 MG TABLET) 1 mg DAILY PO 09/17/24 09:00 10/17/24 08:59 09/20/24 09:01 1 MG Hydralazine HCl (APRESOLine 20MG INJ) 5 mg Q6H PRN IV ADMINISTER FOR SBP > 160 09/18/24 13:00 10/18/24 12:59 Hydromorphone HCl (DiLAUDid 0.5MG INJ) 0.5 mg Q4H PRN IVP BREAKTHROUGH PAIN ONLY 09/12/24 09:00 09/17/24 08:59 DC Ipratropium Romeo (AtrovENT UD) 0.5 MG [id number] IH 09/15/24 00:00 10/15/24 00:00 09/20/24 06:36 0.5 MG Lactulose (Constulose 20gm/ 30ml Udcup) 20 gm BID PRN PO CONSTIPATION 09/16/24 13:30 10/16/24 13:29 09/19/24 17:54 20 GM Lactulose (Constulose 20gm/ 30ml Udcup) 20 gm Q2H PO 09/12/24 15:00 09/12/24 18:00 DC 09/12/24 17:11 20 GM Lidocaine (Lidoderm Patch 5%) 1 patch DAILY TP 09/18/24 09:00 10/18/24 08:59 09/20/24 09:00 1 PATCH Lidocaine (Lidoderm Patch 5%) 1 patch HS TP 09/16/24 21:00 09/18/24 08:33 DC 09/16/24 20:27 1 PATCH Lorazepam (AtiVAN) 2 mg Q4H PRN IVP ALCOHOL WITHDRAWAL PROTOCOL 09/12/24 09:00 09/19/24 08:59 DC Magnesium Sulfate 50 ml @ 0 mls/hr PROTOCOL IV 09/16/24 09:30 09/16/24 09:10 DC Magnesium Sulfate 50 ml @ 0 mls/hr PROTOCOL PRN IV MAGNESIUM PROTOCOL 09/12/24 08:00 10/12/24 07:59 09/16/24 06:26 25 MLS/HR Morphine Sulfate (morPHINE 2MG SYG) 2 mg Q4H PRN IVP SEVERE PAIN (7-10) 09/12/24 09:30 09/17/24 12:29 DC 09/17/24 05:27 2 MG Octreotide Acetate 1250 mcg/ Sodium Chloride 250 ml @ 0 mls/hr PROTOCOL IV 09/12/24 04:00 09/15/24 08:59 DC 09/13/24 23:02 5 MLS/HR Octreotide Acetate (SandoSTATIN) 1,000 mcg ONCE IV 09/12/24 04:00 09/12/24 03:58 DC Ondansetron HCl (zoFRAN 4MG INJ) 4 mg Q6H PRN IV NAUSEA/VOMITING 09/12/24 01:30 10/12/24 01:29 09/14/24 19:58 4 MG Pantoprazole Sodium (PROTonix 40MG TAB) 40 mg BID PO 09/15/24 09:00 10/15/24 08:59 09/20/24 09:00 40 MG Pantoprazole Sodium 80 mg/ Sodium Chloride 100 ml @ 10 mls/hr Q10H IVP 09/12/24 04:00 09/15/24 08:59 DC 09/15/24 00:25 10 MLS/HR Pharmacy Profile Note (Pharmacy Communication) 1 each ONCE MISC 09/14/24 16:00 09/14/24 15:57 DC Pharmacy Profile Note (Pharmacy Communication) 1 each PROTOCOL PRN MISC ETOH Withdrawal Score changes 09/12/24 09:00 09/19/24 08:59 DC Polyethylene Glycol (MIRalax 3350 17 GM POWD.PACK) 17 gm DAILY PO 09/13/24 09:00 10/13/24 08:59 09/20/24 09:00 17 GM Psyllium Hydrophilic Mucilloid (Metamucil) 1 tbs DAILY PRN PO CONSTIPATION 09/18/24 17:30 10/18/24 17:29 09/19/24 10:05 1 TBS Sodium Chloride 1,000 ml @ 75 mls/hr [id number] IV 09/12/24 01:30 09/16/24 13:23 DC 09/15/24 23:45 75 MLS/HR Sucralfate (Carafate) 1 gm Q6H PO 09/14/24 20:30 10/14/24 20:29 09/20/24 09:01 1 GM Thiamine HCl (Vitamin B-1) 100 mg HS PO 09/16/24 21:00 10/16/24 20:59 09/19/24 20:04 100 MG Thiamine HCl 100 mg/Folic Acid 1 mg/Multivitamins/ Minerals 10 ml/ Sodium Chloride 1,011.2 ml @ 100 mls/ hr Q10H IV 09/13/24 06:30 09/13/24 12:32 DC 09/13/24 06:49 100 MLS/HR Thiamine HCl 100 mg/Folic Acid 1 mg/Multivitamins/ Minerals 10 ml/ Sodium Chloride 1,011.2 ml @ 100 mls/ hr Q24H IV 09/12/24 09:00 09/13/24 06:16 DC 09/12/24 17:12 100 MLS/HR Thiamine HCl 100 mg/Folic Acid 1 mg/Multivitamins/ Minerals 10 ml/ Sodium Chloride 1,011.2 ml @ 100 mls/ hr Q24H IV 09/14/24 06:30 09/14/24 16:37 DC 09/14/24 09:33 100 MLS/HR DIAGNOSTICS / RADIOLOGY: [ ] ASSESSMENT: Acute GI bleed, POA Hypotension, POA Macrocytic hyperchromic anemia, POA Mild hyponatremia, POA Multiple compression fractures, T3, T4, T7, L1, L2, POA Nephrolithiasis, POA, 7.3 mm stone in the right renal pelvis, by CT on Severe aortic stenosis on Echo (09/13/24) Hyponatremia Hx of alcohol abuse Tobacco use disorder PLAN: - downgraded to medical floor - continue to follow GI input and recommendation -continue Protonix 40 mg p.o. b.i.d. -continue Carafate 1 g p.o. q.6 hours -continue to monitor for signs of withdrawal - Continue PRN pain control - Trend Hgb, transfuse if < 7.0 - Continue CIWA protocol - Cardiology consulted, appreciate recommendations -neurosurgery contacted, recommended brace. - GI consulted, appreciate recommendations Disposition: case discussed with case management, pending daughter to arrive from [place] to discharge home tomorrow. Case management making arrangements for the patient to be discharged on home oxygen ROXIE HARPER MD Sep 20, 2024 09:47
--- NOTE | 2024-09-20 10:52 | HMCIMG ---
Exam Type: ABD 1VW Clinical Information: constipation Comparison: None Findings: Abdomen demonstrates no evidence of pathologic calcification or soft tissue mass. There are no radiopacities to suggest calculous disease. There is abundant fecal matter consistent with constipation. There is no evidence of dilatation to suggest obstruction or adynamic ileus. The bony structures are unremarkable. IMPRESSION: Constipation.
[2024-09-20] MEDS: MAGNESIUM CITRATE 296 ML SOLUTION PO ONE (18:23)
[2024-09-21 04:00] VITALS: BP 124/71; PULSE 78; RESP 19; TEMP 98.4
[2024-09-21 06:59] VITALS: PULSE 86; RESP 19; RESP 20; O2SAT 94
[2024-09-21 07:15] VITALS: O2SAT 93
[2024-09-21 08:00] VITALS: BP 131/72; PULSE 75; RESP 20; TEMP 98.5
[2024-09-21 11:31] VITALS: PULSE 87; RESP 19
[2024-09-21 12:00] VITALS: BP 126/76; PULSE 91; RESP 20; TEMP 98.3
[2024-09-21] MEDS ORDERED: AMLO5TAB4 PO (13:11)
[2024-09-21] MEDS ORDERED: LIDOP TP (13:11)
[2024-09-21] MEDS ORDERED: FOLI1 PO (13:11)
[2024-09-21] MEDS ORDERED: THIA100T91 PO (13:11)
[2024-09-21] MEDS ORDERED: METH4TAB3 PO (13:12)
[2024-09-21] MEDS ORDERED: PANT40TA54 PO (13:12)
--- NOTE | 2024-09-21 13:49 | NUR ---
spoke to radiology, as per dr corrales request to send copy/cd of ct scans and mri. per staff, they are not allowed to release a copy to family/pt upon home dc; only if they are being transferred to another facility. the request for release has to be done by their pcp.
--- NOTE | 2024-09-21 14:06 | NUR ---
D/C INSTRUCTIONS PROVIDED TO PATIENT AND FAMILY ACKNOWLEDGED. IV REMOVED
--- NOTE | 2024-09-21 14:09 | NUR ---
D/C'D WITH HOME O2 ON BROUGHT BY DAUGHTER
--- NOTE | 2024-09-21 14:58 | DS ---
Discharge Summary Hospital Course Summary: The patient is a 64-year-old male, past medical history of low back pain, current smoker, drinks two beers 12 on each every other day, denied drug abuse, lives alone, history of splenectomy and left knee surgery, presented to the emergency room with a generalized weakness. In the emergency department hemoglobin 6.4, hematocrit 18.6, MCV 108.8 Chest x-ray done, no radiographic evidence of any acute cardiopulmonary process. Echocardiogram 09/12/2024 reported as follows: Conclusion LVEF is 50-55%. There is normal LV segmental wall motion. The aortic valve is calcified and displays decreased opening. There is severe valvular aortic stenosis. Highest mean aortic valve gradient is 56mmHg at rest. Peak aortic valve gradient is 86mmHg. TALHA planimetry 0.6cm2. CT of chest, abdomen, pelvis showed compression fractures involving T3, T4, T7 with 20% loss of height. Compression fractures involving L1 and L2 with 40% and 80% loss of height. COPD with interstitial fibrosis. 7.3 mm right renal pelvic stones without hydronephrosis. The patient was admitted to the intensive care unit. Critical care consultation requested, the patient received transfusion of 1 unit of PRBC. Consultation with tea tree farmer requested, recommended EGD and colonoscopy. EGD performed 09/14, we will seen duodenal ulcer with a wound seen hemorrhage (Walker class B), treated with a bipolar calf 30. Nonbleeding gastric ulcer with a clean ulcer base. Acute gastritis. Esophageal ulcers with no stigmata of recent bleeding. Esophagogastric landmarks identified. Increased vascular pattern mucosa in the esophagus. Normal 2nd portion of the duodenum. No specimen collected. During the course of the hospitalization cervical spine MRI was done, degenerative joint disease with cervical spine spondylosis and central canal narrowing. Thoracic spine MRI and there is subacute compression fracture involving T8 with 50% loss of height. There are degenerative changes with a spondylosis. The thoracic cord is of normal signal intensity without cord compression or impingement Lumbar spine MRI compression fracture of L2 with 70% loss of height and bone edema, degenerative joint disease with lumbar spine spondylosis and central cannula narrowing. At the level of L2-L3 there is spondylotic disc with bilateral ligamentum flavum hypertrophy causing anterior thecal sac compression bilateral recess stenosis and bilateral neural foraminal stenosis, the thecal sac measures) point mm in its anterior posterior dimension Findings of MRI discussed with the Neurosurgery, a brace recommended and outpati ent follow up. Discharge plan discussed with case management, daughter presented today from [place] to transfer patient back home. Arrangements made for the patient to be discharged on oxygen per 6 minute walk requirements. Results of spine MRI as tests we will be provided to the patient and the daughter as well as disc imaging as the patient will require to follow up with his PCP, GI and Neurosurgery as an outpatient upon arrival to [place]. Patient agreed and understood all the information provided today. Today the patient is alert oriented x3, hemodynamically stable, has had several bowel movement, tolerating diet, he denies dizziness, no headache, no blurry vision, no chest pain, no shortness a breath, no nausea, no vomiting, no abdominal pain, no diarrhea, no constipation, no melena, no hematochezia, no hematemesis, no hematuria, no dysuria. No urinary or bowel retention or incontinence, moving all four extremities. PHYSICAL EXAM GENERAL APPEARANCE: The patient is awake, alert, and oriented, in no acute cardiopulmonary distress. NEUROLOGICAL: Cranial nerves II-XII grossly intact. Motor is 5/5 in bilateral upper and lower extremities proximal to distal. No sensory deficits. HEENT: Face is symmetric. Pupils are equal and reactive. Extraocular movements are intact. NECK: Supple. No JVD. No thyromegaly. No submental, submandibular, pre- /postauricular, occipital or supraclavicular lymphadenopathy. CHEST: Normal chest expansion. No Telemetry. LUNGS: Absence of any rales, rhonchi or any wheezing. CARDIOVASCULAR: Regular. S1 and S2 normal. No appreciable rubs, murmurs or gallops. ABDOMEN: Soft, nontender, and nondistended. There is no rebound, voluntary guarding, or rigidity. : Deferred. No Amrtinez. EXTREMITIES: Non-edematous and not cyanotic. No clubbing. Good capillary refill. SKIN: No skin breakdown. The patient to be discharged back to [place] today. Daughter at bedside Service Crew Leader(s): Critical care and GI Assessment/Plan: Final diagnosis Acute GI bleed, POA Hypotension, POA Macrocytic hyperchromic anemia, POA Mild hyponatremia, POA Multiple compression fractures, T3, T4, T7, L1, L2, POA Nephrolithiasis, POA, 7.3 mm stone in the right renal pelvis, by CT on three/7/25 Severe aortic stenosis on Echo (09/13/24) Hyponatremia Hx of alcohol abuse Tobacco use disorder Discharge Instructions: Patient to be discharged home today. Patient to return to hospital if condition changes. Patient agreed with the plan and understood the information provided. Home Medications: Active Scripts Methylprednisolone (Medrol) 4 Mg Tab.ds.pk, 1 TAB PO AD for 6 Days, #21 TAB 0 Refills 6 on day 1 then reduce by one tablet daily until gone Prov:ROXIE HARPER MD 09/21/24 Pantoprazole Sodium (Pantoprazole Sodium) 40 Mg Tablet.dr, 1 TAB PO DAILY for 30 Days, #30 TAB 1 Refill Prov:ROXIE HARPER MD 09/21/24 Thiamine HCl (Vitamin B-1) 100 Mg Tablet, 100 MG PO HS for 30 Days, #30 TAB 1 Refill Prov:ROXIE HARPER MD 09/21/24 Lidocaine (Lidoderm Patch 5%) 5 % Patch, 1 PATCH TP DAILY for 15 Days, #15 ADH.PATCH 1 Refill Prov:ROXIE HARPER MD 09/21/24 Folic Acid (Folvite) 1 Mg Tab, 1 MG PO DAILY for 30 Days, #30 TAB 1 Refill Prov:ROXIE HARPER MD 09/21/24 Amlodipine Besylate (Norvasc 5Mg Tab) 5 Mg Tablet, 5 MG PO DAILY for 30 Days, #30 TAB 1 Refill Prov:ROXIE HARPER MD 09/21/24 Discontinued Reported Medications [no home meds] No Conflict Check 09/12/24 Time spent arranging discharge: 31-60 minutes ROXIE HARPER MD Sep 21, 2024 14:58
--- NOTE | 2024-09-21 15:55 | NUR ---
DAUGHTER REQUESTING TO SPEAK TO DR HARPER. REQUESTING RX FOR CARAFATE TO BE CALLED. FAMILY ALSO HAS MULTIPLE [id number] RE: REFERRAL TO MAINTENANCE MANAGER AND PAPER PROCESSING MACHINE HELPER. INFORMED THAT PT NEEDED TO FOLLOW UP WITH A PRIMARY CARE PHYSICIAN IN ORDER TO REFER TO CARDIOLOGY, PULMONOLOGY AND NEUROSURGERY. RX OF CARAFATE CALLED TO [facility] ON [address] IN [place]
--- NOTE | 2024-09-22 09:43 | NUR ---
SPOKE TO DAUGHTER CARLOA MAGANA, STATED NEVER GOT RX OTHER THAN CARAFATE YESTERDAY. CALLED REMAINING MEDS TO [facility] IN [facility]. CALLED IN RX OF AMLODIPINE 5NFG DAILY X30, FOLIC ACID 1MG DAILY X30, LIDODERM PTCH 5% QD X15, MEDROL DOSE PACK 4MG DAILY DIRECTED X6 DAYS, PROTONIX 40MG X30 DAYS, THIAMINE 100MG QD X30
== END 2024-09-21 16:45 | disposition home or self-care (01) | DRG 377 ==
LOC: EDH 22:39 → EDHIP 22:40 → 2BH 09-12 08:26 → 2AH 09-15 18:00 → 3DH 09-16 20:50
PROVIDERS: ADMIT Internal Medicine; ATTEND Internal Medicine
PROC: 30233N1 Transfusion of Nonautologous Red Blood Cells into Peripheral Vein, Percutaneous Approach (ICD-10-PCS; 2024-09-12)
PROC: 0W3P8ZZ Control Bleeding in Gastrointestinal Tract, Via Natural or Artificial Opening Endoscopic (ICD-10-PCS; principal; 2024-09-14)
DX: K26.4 Chronic or unspecified duodenal ulcer with hemorrhage (principal); R57.1 Hypovolemic shock; D62 Acute posthemorrhagic anemia; M48.54XA Collapsed vertebra, not elsewhere classified, thoracic region, initial encounter for fracture; M48.56XA Collapsed vertebra, not elsewhere classified, lumbar region, initial encounter for fracture; E87.1 Hypo-osmolality and hyponatremia; K22.10 Ulcer of esophagus without bleeding; R65.10 Systemic inflammatory response syndrome (SIRS) of non-infectious origin without acute organ dysfunction; K59.00 Constipation, unspecified; N40.0 Benign prostatic hyperplasia without lower urinary tract symptoms; N20.0 Calculus of kidney; J44.9 Chronic obstructive pulmonary disease, unspecified; R29.890 Loss of height; K29.00 Acute gastritis without bleeding; I35.0 Nonrheumatic aortic (valve) stenosis; F17.210 Nicotine dependence, cigarettes, uncomplicated; Z90.81 Acquired absence of spleen; E83.42 Hypomagnesemia; E86.0 Dehydration; F10.20 Alcohol dependence, uncomplicated; I25.10 Atherosclerotic heart disease of native coronary artery without angina pectoris; T39.395A Adverse effect of other nonsteroidal anti-inflammatory drugs [NSAID], initial encounter; Z63.4 Disappearance and death of family member; Y92.89 Other specified places as the place of occurrence of the external cause
CPT/HCPCS: 36415; 36430; 43255; 71045; 71250; 72156; 72157; 72158; 74018; 74176; 80048; 80053; 80076; 80305; 81001; 82270; 82607; 82746; 82948; 83540; 83550; 83615; 83735; 83930; 83935; 84100; 84300; 85014; 85018; 85025; 85027; 85045; 85060; 85610; 85730; 86850; 86900; 86901; 86923; 93005; 93306; 94640; 96361; 96374; 99291; A4606; G0378; J0456; J0696; J1171; J2003; J2270; J2354; J2405; J2470; J2704; J3411; J3475; J3490; J7030; J7050; J8540; P9016; A4215; A4222; A4223; A4600; A4620; A9575